=== PATIENT | male | born 1955 | race Two or more races ===

== ENCOUNTER 2024-05-03 01:59 | Inpatient (IN) | payer MEDICARE, BC ==
[~2024-05-03] VITALS: Ht 193 cm; Wt 109.8 kg
--- NOTE | 2024-05-03 02:18 | ED.PDOC ---
History of Present Illness HPI Comments 68-year-old male the EMS for generalized weakness. Per EMS, patient was picked up at [facility], with a complaint of generalized weakness for 3 days. Diagnostics were done and it showed elevated troponin levels and altered kidney function tests. Diagnosed with acute renal failure. Patient does have history of prostate cancer(?), with possibility of metastases to kidneys. Patient being transferred here for renal consult and oncology consult. Chief Complaint: General Weakness Time Seen by MD: 02:17 Reviewed Notes: Nurses Notes Information Source: Patient, Emergency Med Personnel Mode of Arrival: EMS Severity: Moderate Timing: Days Duration: Since onset Prehospital treatment: None Medication Refill: For: Other Past Medical History PAST MEDICAL HISTORY: AFIB, Cancer Surgical History: Denies all surgeries Family History Family History: Reviewed,noncontributory to illness Social History Smoker: Non-Smoker Alcohol: Denies ETOH Use Drugs: Denies Drug Use Lives In: Home Constitutional: reports: weakness; denies: chills, diaphoresis, fatigue, fever, malaise, sweats, others EENTM: denies: blurred vision, double vision, ear bleeding, ear discharge, ear drainage, ear pain, ear ringing, eye pain, eye redness, hearing loss, mouth pain, mouth swelling, nasal discharge, nose bleeding, nose congestion, nose pain, photophobia, tearing, throat pain, throat swelling, voice changes, others Respiratory: denies: cough, hemoptysis, orthopnea, SOB at rest, shortness of breath, SOB with excertion, stridor, wheezing, others Cardiovascular: reports: chest pain (Right ribcage); denies: dizzy spells, diaphoresis, Dyspnea on exertion, edema, irregular heart beat, left arm pain, lightheadedness, palpitations, PND, syncope, others Gastrointestinal: denies: abdomen distended, abdominal pain, blood streaked bowels, constipated, diarrhea, dysphagia, difficulty swallowing, hematemesis, melena, nausea, poor appetite, poor fluid intake, rectal bleeding, rectal pain, vomiting, others Genitourinary: denies: burning, dysuria, flank pain, frequency, hematuria, incontinence, penile discharge, penile sore, pain, testicle pain, testicle swelling, urgency, others Neurological: denies: dizziness, fainting, headache, left sided numbness, left sided weakness, numbness, paresthesia, pre-existing deficit, right sided numbness, right sided weakness, seizure, speech problems, tingling, tremors, weakness, others Musculoskeletal: denies: back pain, gout, joint pain, joint swelling, muscle pain, muscle stiffness, neck pain, others Integumetry: denies: bruises, change in color, change in hair/nails, dryness, laceration, lesions, lumps, rash, wounds, others Allergic/Immunocompromised: denies: Difficulty Healing, Frequent Infections, Hives, Itching, others Hematologic/Lymphatic: denies: anemia, blood clots, easy bleeding, easy bruising, swollen glands, others Endocrine: denies: excessive hunger, excessive sweating, excessive thirst, excessive urination, flushing, intolerance to cold, intolerance to heat, unexplained weight gain, unexplained weight loss, others Psychiatric: denies: anxiety, bipolar disorder, depression, hopeless, panic disorder, schizophrenia, sleepless, suicidal, others Physical Exam General Appearance: No Apparent Distress, Normal HEENT: Normal ENT Inspection, Pharynx Normal, TMs Normal Neck: Full Range of Motion, Non-Tender, Normal, Normal Inspection Respiratory: Chest Non-Tender, Lungs Clear, No Accessory Muscle Use, No Respiratory Distress, Normal Breath Sounds Cardiovascular: No Edema, No JVD, No Murmur, No Gallop, Normal Peripheral Pulses, Regular Rate/Rhythm Breast Exam: Deferred Gastrointestinal: No Organomegaly, Non Tender, No Pulsatile Mass, Normal Bowel Sounds, Soft Genitalia: Deferred Pelvic: Deferred Rectal: Deferred Extremities: No calf tenderness, Normal capillary refill, Normal inspection, Normal range of motion, Non-tender, No pedal edema Musculoskeletal : Apperance: Normal Neurologic: Alert, 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 Was a procedure done?: No Differential Dx Considerations may include: , electrolyte imbalance, anemia, prostate cancer with Mets X-Ray, Labs, Meds, VS Vital Signs Date Time Temp Pulse Resp B/P (MAP) Pulse Ox O2 Delivery O2 Flow Rate FiO2 05/03/24 05:12 82 16 109/60 (76) 98 05/03/24 04:42 109/72 05/03/24 02:55 92 Nasal Cannula* 6 44 05/03/24 02:40 99.1 90 14 98/55 (69) 98 99.1 05/03/24 01:59 99.2 84 18 94/55 (68) 98 05/03/24 01:59 86 Lab Test 05/03/24 02:27 Range/Units White Blood Count 9.7 4.4-10.8 10^3/uL Red Blood Count 3.80 L 4.5-5.90 10^6/uL Hemoglobin 12.5 L 13.5-17.5 g/dL Hematocrit 37.0 L 41.0-53.0 % Mean Corpuscular Volume 97.4 80.0-100.0 fL Mean Corpuscular Hemoglobin 32.8 H 28.0-32.0 pg Mean Corpuscular Hemoglobin Concent 33.7 32.0-36.0 g/dL Red Cell Distribution Width 16.2 H 11.8-14.3 % Platelet Count 169 140-450 10^3/uL Mean Platelet Volume 7.3 6.9-10.8 fL Neutrophils (%) (Auto) 85.9 H 37.0-80.0 % Lymphocytes (%) (Auto) 3.5 L 10.0-50.0 % Monocytes (%) (Auto) 10.1 0.0-12.0 % Eosinophils (%) (Auto) 0.3 0.0-7.0 % Basophils (%) (Auto) 0.2 0.0-2.0 % Neutrophils # (Auto) 8.3 1.6-8.6 10 ^3/uL Lymphocytes # (Auto) 0.3 L 0.4-5.4 10 ^3/uL Monocytes # (Auto) 1.0 0-1.3 10 ^3/uL Eosinophils # (Auto) 0 0-0.8 10 ^3/uL Basophils # (Auto) 0 0-0.2 10 ^3/uL Nucleated Red Blood Cells 0.0 % Prothrombin Time 15.1 H 9.3-11.8 sec Prothrombin Time INR 1.47 H 0.9-1.15 Activated Partial Thromboplast Time 29.4 24.5-34.5 SEC Sodium Level 140 136-145 mmol/L Potassium Level 2.9 L 3.5-5.1 mmol/L Chloride Level 105 98-107 mmol/L Carbon Dioxide Level 25 20-31 mmol/L Anion Gap 10 5-15 Blood Urea Nitrogen 44 H 9-23 mg/dL Creatinine 2.08 H 0.700-1.30 mg/dL Glomerular Filtration Rate Calc 34 >90 mL/min BUN/Creatinine Ratio 21.2 H 10.0-20.0 Serum Glucose 98 74-106 mg/dL Calcium Level 9.3 8.7-10.4 mg/dL Total Bilirubin 1.4 H 0.2-1.0 mg/dL Aspartate Amino Transferase (AST) 22 13-40 U/L Alanine Aminotransferase (ALT) < 9 7-40 U/L Alkaline Phosphatase 83 46-116 U/L Total Protein 5.9 5.7-8.2 g/dL Albumin 3.4 3.2-4.8 g/dL Current Medications Medications (Trade) Dose Ordered Sig/Goyo Route Start Time Stop Time Status Last Admin Furosemide (Lasix Injection) 40 mg ONCE ONCE IV 05/03/24 04:15 05/03/24 04:16 DC 05/03/24 04:42 Potassium Chloride (Klor-Con Tablet) 40 meq ONCE ONCE PO 05/03/24 04:15 05/03/24 04:16 DC 05/03/24 04:43 Time of 1ST Reevaluation: 02:14 Reevaluation 1ST: Unchanged Time of 2ND Reevaluation: 03:42 Reevaluation 2ND: Unchanged Patient Education/Counseling: Diagnosis, Treatment Family Education/Counseling: No Family Present Departure 1 Departure Time of Disposition: 03:42 Impression: Primary Impression: Acute renal injury Additional Impression: Lung cancer Disposition: 09 ADMITTED INPATIENT Condition: Guarded Critical Care Note Critical Care Time?: No Stability Stability form required: No Heart Score Heart Score: Heart Score Response (Comments) Value History N/A 0 EKG N/A 0 Age N/A 0 Risk Factors N/A 0 Troponin N/A 0 Total 0 I personally scribed for CHINA FUENTES MD ([email or web address]) on 05/03/24 at 02:18. Electronically submitted by Kyle Lunsford ([email or web address]). I personally scribed for CHINA FUENTES MD ([email or web address]) on 05/03/24 at 02:22. Electronically submitted by Kyle Lunsford ([email or web address]). HCINA FUENTES MD May 03, 2024 02:18
[2024-05-03 02:36] LABS: Basophils # (auto) 0 10 ^3/uL (0-0.2); Basophils % (auto) 0.2 % (0.0-2.0); Eosinophils # (auto) 0 10 ^3/uL (0-0.8); Eosinophils % (auto) 0.3 % (0.0-7.0); Hemoglobin 12.5 g/dL (13.5-17.5); Lymphocytes # (auto) 0.3 10 ^3/uL (0.4-5.4); Lymphocytes % (auto) 3.5 % (10.0-50.0); Mean Corpuscular Hemoglobin 32.8 pg (28.0-32.0); Mean Corpuscular Hgb Conc. 33.7 g/dL (32.0-36.0); Mean Corpuscular Volume 97.4 fL (80.0-100.0); Monocytes % (auto) 10.1 % (0.0-12.0); Neutrophils # (auto) 8.3 10 ^3/uL (1.6-8.6); Neutrophils % (auto) 85.9 % (37.0-80.0); Platelet Count (auto) 169 10^3/uL (140-450); Red Cell Distribution Width 16.2 % (11.8-14.3); White Blood Cell 9.7 10^3/uL (4.4-10.8)
[2024-05-03 02:51] LABS: INR 1.47 (0.9-1.15); Partial Thromboplastin Time 29.4 SEC (24.5-34.5); Prothrombin Time 15.1 sec (9.3-11.8)
[2024-05-03 02:53] LABS: Alanine Aminotransferase < 9 U/L (7-40); Albumin 3.4 g/dL (3.2-4.8); Alkaline Phosphatase 83 U/L (46-116); Anion Gap 10 (5-15); Aspartate Aminotransferase 22 U/L (13-40); BUN/Creatinine Ratio 21.2 (10.0-20.0); Bilirubin, Total 1.4 mg/dL (0.2-1.0); Blood Urea Nitrogen 44 mg/dL (9-23); Calcium 9.3 mg/dL (8.7-10.4); Carbon Dioxide 25 mmol/L (20-31); Chloride 105 mmol/L (98-107); Glucose 98 mg/dL (74-106); Potassium 2.9 mmol/L (3.5-5.1); Sodium 140 mmol/L (136-145); Total Protein 5.9 g/dL (5.7-8.2)
[2024-05-03 02:55] VITALS: O2SAT 92
[2024-05-03] MEDS: FUROSEMIDE 40 MG/4 ML VIAL IV ONE (04:42)
[2024-05-03] MEDS: POTASSIUM CHL 20 Meq TABLET PO ONE ×2 (04:43→17:20)
[2024-05-03] MEDS ORDERED: DOCUSATE SOD 100 MG CAP PO PRN (06:30)
[2024-05-03] MEDS ORDERED: ACETAMINOPHEN 325 MG TAB PO PRN (06:30)
[2024-05-03] MEDS ORDERED: ONDANSETRON HCL 4 MG/2 ML VIAL IV PRN (06:30)
--- NOTE | 2024-05-03 06:32 | ECG ---
[facility] Test Date: 2024-05-03 Test Time: 01:52:42 Pat Name: KELSEY MCKEON Department: ED Room: 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
[2024-05-03 06:55] LABS: Basophils # (auto) 0.1 10 ^3/uL (0-0.2); Basophils % (auto) 0.7 % (0.0-2.0); Eosinophils # (auto) 0 10 ^3/uL (0-0.8); Eosinophils % (auto) 0.4 % (0.0-7.0); Hematocrit 36.9 % (41.0-53.0); Hemoglobin 12.7 g/dL (13.5-17.5); Lymphocytes # (auto) 0.3 10 ^3/uL (0.4-5.4); Lymphocytes % (auto) 2.8 % (10.0-50.0); Mean Corpuscular Hemoglobin 33.4 pg (28.0-32.0); Mean Corpuscular Hgb Conc. 34.5 g/dL (32.0-36.0); Mean Corpuscular Volume 96.8 fL (80.0-100.0); Monocytes # (auto) 0.9 10 ^3/uL (0-1.3); Monocytes % (auto) 9.6 % (0.0-12.0); Neutrophils # (auto) 7.9 10 ^3/uL (1.6-8.6); Neutrophils % (auto) 86.5 % (37.0-80.0); Platelet Count (auto) 175 10^3/uL (140-450); Red Blood Cells 3.81 10^6/uL (4.5-5.90); Red Cell Distribution Width 16.1 % (11.8-14.3); White Blood Cell 9.1 10^3/uL (4.4-10.8)
[2024-05-03 07:13] LABS: Albumin 3.3 g/dL (3.2-4.8); Alkaline Phosphatase 89 U/L (46-116); Anion Gap 9 (5-15); Aspartate Aminotransferase 23 U/L (13-40); BUN/Creatinine Ratio 22.2 (10.0-20.0); Calcium 9.4 mg/dL (8.7-10.4); Carbon Dioxide 27 mmol/L (20-31); Chloride 105 mmol/L (98-107); Glucose 89 mg/dL (74-106); Sodium 141 mmol/L (136-145)
[2024-05-03 07:14] LABS: Alanine Aminotransferase < 9 U/L (7-40); Bilirubin, Total 1.3 mg/dL (0.2-1.0); Blood Urea Nitrogen 46 mg/dL (9-23); Potassium 2.9 mmol/L (3.5-5.1); Total Protein 5.9 g/dL (5.7-8.2)
[2024-05-03] MEDS ORDERED: MORPHINE SULFATE INJ 2 MG/ml SYRG IV PRN (07:30)
[2024-05-03] MEDS ORDERED: NITROGLYCERIN 0.4 MG SL TAB SL PRN (07:30)
--- NOTE | 2024-05-03 07:40 | DVHHP2 ---
History of Present Illness Reason for Visit: Generalized weakness History of Present Illness The patient is a 68-year-old male with past medical history of AFib currently on Coumadin and lung cancer with possible metastasis to the kidney, presented to [facility] ED for evaluation of generalized weakness. Patient rep orts having generalized weakness for the past three days, associated chest pain, currently on radiation therapy, last treatment 2 weeks ago. Patient was seen and evaluated in the ED, laboratory data shows WBC 9.7, platelets 169, sodium 140, potassium 2.9, BUN 44, creatinine 2.08, GFR 34, glucose 98, total bilirubin 1.4, PT 15.1, INR 1.47, blood pressure 109/60, heart rate 82, temperature 99.1 F, O2 saturation 98% on oxygen. Patient was given IV piggyback potassium 40 mEq, please see medication orders section in the computer. On my assessment, patient denied chest pain, no headache, no dizziness, no diaphoresis, currently on oxygen, no abdominal pain, no diarrhea, no nausea, no vomiting, no fever, no chills. Patient was admitted for further oncology evaluation and medical management. Past Medical History AFIB, lung cancer Past Surgical History Denies all surgeries Family History Reviewed, noncontributory to the management of this case. Past Social History The patient lives at home, denies smoking, alcohol or illicit drugs abuse. Review of Systems Constitutional: Yes: Weakness, Other (Fatigue); No: Fever, Chills, Sweats, Malaise Eyes: No: Pain, Vision change, Conjunctivae inflammation, Eyelid inflammation, Other, Redness ENT: No: Ear pain, Ear discharge, Nose pain, Nose discharge, Nose congestion, Mouth pain, Mouth swelling, Throat pain, Throat swelling, Other Respiratory: Shortness of breath, Other (SOB at rest); No: Cough, Dry, SOB with excertion, Wheezing, Hemoptysis, Pleuritic Pain, Sputum, Wheezing Cardiovascular: Chest Pain; No: Palpitations, Orthopnea, Paroxysmal Noc. Dyspnea, Edema, Lt Headedness, Other Gastrointestinal: No: Nausea, Vomiting, Abdominal Pain, Diarrhea, Constipation, Melena, Hematochezia, Other Genitourinary: No Dysuria, No Frequency, No Incontinence, No Hematuria, No Retention, No Other Musculoskeletal: No: other, neck pain, shoulder pain, arm pain, back pain, hand pain, leg pain, foot pain Skin: No: Rash, Lesions, Jaundice, Bruising, Other Neurological: No: Weakness, Numbness, Incoordination, Change in speech, Confusion, Seizures, Other Medications Current Medications Medications Dose Ordered Sig/Goyo Route Start Time Stop Time Status Last Admin Dose Admin Carvedilol 3.125 mg Q12HR PO 05/03/24 10:00 UNV Warfarin Sodium RX PROTOCOL PER PHARMACY PO 05/03/24 06:30 UNV Sodium Chloride 10 ml Q8HR IV 05/03/24 14:00 UNV Acetaminophen/ Hydrocodone Bitart 1 tab Q4HP PRN PO 05/03/24 06:30 UNV Ondansetron HCl 4 mg Q4HP PRN IV 05/03/24 06:30 UNV Docusate Sodium 100 mg BIDPRN PRN PO 05/03/24 06:30 UNV Acetaminophen 650 mg Q6HP PRN PO 05/03/24 06:30 UNV Exam Vital Signs Vital Signs Date Time Temp Pulse Resp B/P (MAP) Pulse Ox O2 Delivery O2 Flow Rate FiO2 05/03/24 05:12 82 16 109/60 (76) 98 05/03/24 02:55 Nasal Cannula* 6 44 05/03/24 02:40 99.1 99.1 General Appearance: Alert, Oriented X3, Cooperative, No acute distress HEENT: Atraumatic, PERRLA, EOMI, Mucous membr. moist/pink Respiratory: Normal air movement, Other (Diminished breath sounds) Cardiovascular: Regular rate, Normal S1, Normal S2, No murmurs Abdominal: Normal bowel sounds, Soft, No tenderness, No hepatospenomegaly, No masses Extremities: No clubbing, No cyanosis, No edema, Normal pulses, No tenderness/swelling Skin: No rashes, No breakdown, No significant lesion Neuro: Normal speech, Normal tone, Sensation intact, Cranial nerves 3-12 NL, Reflexes 2+, Other (Generalized weakness) Psych/Mental Status: Mental status NL, Mood NL Labs/Xrays Labs Test 05/03/24 06:41 05/03/24 02:27 Range/Units White Blood Count 9.1 4.4-10.8 10^3/uL Red Blood Count 3.81 L 4.5-5.90 10^6/uL Hemoglobin 12.7 L 13.5-17.5 g/dL Hematocrit 36.9 L 41.0-53.0 % Mean Corpuscular Volume 96.8 80.0-100.0 fL Mean Corpuscular Hemoglobin 33.4 H 28.0-32.0 pg Mean Corpuscular Hemoglobin Concent 34.5 32.0-36.0 g/dL Red Cell Distribution Width 16.1 H 11.8-14.3 % Platelet Count 175 140-450 10^3/uL Mean Platelet Volume 7.5 6.9-10.8 fL Neutrophils (%) (Auto) 86.5 H 37.0-80.0 % Lymphocytes (%) (Auto) 2.8 L 10.0-50.0 % Monocytes (%) (Auto) 9.6 0.0-12.0 % Eosinophils (%) (Auto) 0.4 0.0-7.0 % Basophils (%) (Auto) 0.7 0.0-2.0 % Neutrophils # (Auto) 7.9 1.6-8.6 10 ^3/uL Lymphocytes # (Auto) 0.3 L 0.4-5.4 10 ^3/uL Monocytes # (Auto) 0.9 0-1.3 10 ^3/uL Eosinophils # (Auto) 0 0-0.8 10 ^3/uL Basophils # (Auto) 0.1 0-0.2 10 ^3/uL Nucleated Red Blood Cells 0.0 % Sodium Level 141 136-145 mmol/L Potassium Level 2.9 L 3.5-5.1 mmol/L Chloride Level 105 98-107 mmol/L Carbon Dioxide Level 27 20-31 mmol/L Anion Gap 9 5-15 Blood Urea Nitrogen 46 H 9-23 mg/dL Creatinine 2.07 H 0.700-1.30 mg/dL Glomerular Filtration Rate Calc 34 >90 mL/min BUN/Creatinine Ratio 22.2 H 10.0-20.0 Serum Glucose 89 74-106 mg/dL Calcium Level 9.4 8.7-10.4 mg/dL Total Bilirubin 1.3 H 0.2-1.0 mg/dL Aspartate Amino Transferase (AST) 23 13-40 U/L Alanine Aminotransferase (ALT) < 9 7-40 U/L Alkaline Phosphatase 89 46-116 U/L Total Protein 5.9 5.7-8.2 g/dL Albumin 3.3 3.2-4.8 g/dL Prothrombin Time 15.1 H 9.3-11.8 sec Prothrombin Time INR 1.47 H 0.9-1.15 Activated Partial Thromboplast Time 29.4 24.5-34.5 SEC Assessment/Plan Assessment/Plan Acute renal injury Lung cancer Hypokalemia Generalized weakness Acute respiratory failure with hypoxia Plan 1. Admit to telemetry unit 2. Breathing treatment 3. Pain control management 4. Management of fluids and electrolytes 5. Consultation for Hematology/Oncology, Nephrology/pulmonology 6. Diagnostic tests chest x-ray 7. DVT prophylaxis-on Coumadin 8. Repeat labs CBC, CMP in a.m. 9. Continue with current medical management 10. Treatment plan discussed with patient and RN. Patient verbalized understanding. Plan discussed with: Patient, Other (RN) My Orders Orders - JEANETTE HERR DNP Procedure Category Date Status Time *Dr. Dangelo Group CONS 05/03/24 Transmitted -[place] 06:23 Carvedilol Tablet PHA 05/03/24 Logged (Coreg Tablet) 10:00 Warfarin Per Rx PHA 05/03/24 Logged Protocol (Coumadin 06:30 Allergies JIMI 05/03/24 In Process 06:23 Code Status CODE 05/03/24 Transmitted 06:23 Sodium Chloride Lock PHA 05/03/24 Logged (Saline Lock Ns) 14:00 Oxygen Per Hour RT 05/03/24 Transmitted 06:23 Hydrocodone-Acet PHA 05/03/24 Logged 5/325mg Tab ([place] 06:30 Ondansetron Hcl PHA 05/03/24 Logged (Zofran) 06:30 Docusate Sodium PHA 05/03/24 Logged Capsule (Colace 06:30 Fall Risk Precautions JIMI 05/03/[address] 06:23 Complete Blood Count LAB 05/04/24 Verified 04:00 Comprehensive LAB 05/04/24 Verified Metabolic Panel 04:00 Cardiac DIET 05/03/24 Transmitted Diet-2gna,Lofat,Lochol Breakfast Condition: Serious JIMI 05/03/24 In Process 06:23 Acetaminophen Tablet PHA 05/03/24 Logged (Tylenol Tablet) 06:30 Sequential JIMI 05/03/24 In Process Compression Device Problem List: (1) Acute renal injury (2) Lung cancer (3) Hypokalemia (4) Generalized weakness (5) Acute respiratory failure with hypoxia Date of Service: May 03, 2024 Billing Provider: JEANETTE HERR DNP Common Visit Codes: [id number] INP/OBS CARE (HIGH) JEANETTE HERR DNP May 03, 2024 07:40
[2024-05-03] MEDS ORDERED: IPRATROPIUM BROM 0.5 MG/2.5ML INH SOL NEB PRN (08:30)
[2024-05-03] MEDS ORDERED: ALBUTEROL SULF 2.5 MG/0.5ML(0.5%) NEB SOLN NEB PRN (08:30)
[2024-05-03] MEDS: CARVEDILOL 3.125 MG TAB PO SCH (10:00)
[2024-05-03 11:01] VITALS: PULSE 95; RESP 16; O2SAT 96
[2024-05-03] MEDS ORDERED: PRE5T PO (11:17)
[2024-05-03] MEDS ORDERED: LOSA-533 PO (11:17)
[2024-05-03] MEDS ORDERED: DOCU-265 PO (11:17)
[2024-05-03] MEDS ORDERED: CARV3.1240 PO (11:17)
[2024-05-03] MEDS ORDERED: WARF-66 PO (11:17)
[2024-05-03] MEDS ORDERED: GABA-339 PO (11:17)
[2024-05-03 13:01] VITALS: BP 121/79; PULSE 95; RESP 16; TEMP 98.7; O2SAT 96
--- NOTE | 2024-05-03 15:29 | DVHINCON2 ---
Date Seen: May 03, 2024 Referring Physician MD Rommel Reason for Consultation Hx of Afib History of Present Illness This is a 68-year-old male patient who presents from [facility] for generalized weakness for three days. Patient reports he has been feeling fatigued and generally weak prior to coming to the emergency room. He reports being unable to walk or complete any activities of daily living. EMS was called and the patient was taken to [facility] in [facility]. He was then transferred to this facility for further evaluation. Initial twelve lead electrocardiogram reveals atrial fibrillation with controlled rate. The patient denies any cardiac symptoms at time of assessment. Significant past medical history includes atrial fibrillation (on Warfarin), hypertension, bilateral lower extremity DVTs, prostate cancer with metastasis, peripheral neuropathy and obesity. 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 Past Medical History Past medical history reviewed. No other significant than mentioned above. Past Surgical History Cholecystectomy Right shoulder repair Family History: Patient reports no known family medical history. Family History Family history reviewed. Social History Denies the use of tobacco, alcohol or illicit drugs. Allergies: Coded Allergies: Morphine (Verified Allergy, Severe, 05/03/24) Home Meds Reported Medications Losartan Potassium (Losartan Potassium) 25 Mg Tab, 1 TAB PO DAILY, #90 TAB 1 Refill 05/03/24 Warfarin Sodium (Warfarin Sodium) 5 Mg Tab, TAB PO 05/03/24 Gabapentin (Gabapentin) 600 Mg Tab, 1 TAB PO TID 05/03/24 Carvedilol (Carvedilol) 3.125 Mg Tab, 1 TAB PO BID 05/03/24 Prednisone (Prednisone) 5 Mg Tab, 1 TAB PO DAILY 05/03/24 Docusate Sodium (Docusate Sodium) 100 Mg Cap, 1 CAP PO BID 05/03/24 Current Medications Current Medications Medications (Trade) Dose Ordered Sig/Goyo Route PRN Reason Start Time Stop Time Status Last Admin Carvedilol (Coreg Tablet) 3.125 mg Q12HR PO 05/03/24 10:00 Warfarin Sodium (Coumadin Per Rx Protocol) RX PROTOCOL PER PHARMACY PO 05/03/24 06:30 Sodium Chloride (Saline Lock Ns) 10 ml Q8HR IV 05/03/24 14:00 Acetaminophen/ Hydrocodone Bitart ([place] 5/325MG Tab) 1 tab Q4HP PRN PO MODERATE PAIN (4-6 PAIN SCALE) 05/03/24 06:30 Ondansetron HCl (Zofran) 4 mg Q4HP PRN IV NAUSEA / VOMITING 05/03/24 06:30 Docusate Sodium (Colace Capsule) 100 mg BIDPRN PRN PO FOR CONSTIPATION 05/03/24 06:30 Acetaminophen (Tylenol Tablet) 650 mg Q6HP PRN PO PAIN SCALE 1-3 OR TEMP>100.4 05/03/24 06:30 Nitroglycerin (Ntrostat Sublingual) 0.4 mg Q5MINP PRN SL FOR CHEST PAIN 05/03/24 07:30 Morphine Sulfate 2 mg Q30M PRN IV FOR CHEST PAIN 05/03/24 07:30 Hold Albuterol (Ventolin Medneb) 2.5 mg Q4HPRN PRN NEB SHORTNESS OF BREATH 05/03/24 08:30 05/03/24 08:53 DC Ipratropium [place] (Atrovent Medneb) 0.5 mg Q4HPRN PRN NEB SHORTNESS OF BREATH 05/03/24 08:30 05/03/24 08:53 DC Review of Systems Constitutional: Generalized weakness Ears, Nose, & Throat: No symptom reported Eyes: No symptom reported Neurological: No symptoms reported Pulmonary/Respiratory: No symptoms reported Cardiovascular: No symptom reported Gastrointestinal: No symptom reported Genitourinary: No symptom reported Musculoskeletal: No symptom reported Skin: No symptom reported Psychiatric: No symptom reported Endocrine: No symptom reported Hematologic/Lymphatic: No symptom reported Vital Signs Vital Signs Date Time Temp Pulse Resp B/P (MAP) Pulse Ox O2 Delivery O2 Flow Rate FiO2 05/03/24 13:01 98.7 95 16 121/79 (93) 96 98.7 05/03/24 11:01 Room Air* 0 21 Physical Exam General Appearance: Cooperative. Morbidly obese Pulmonary/Respiratory: Clear, bilateral breaths sounds. Cardiovascular/Chest: Irregular rate and rhythm. Peripheral Pulses: 2+ Radial (R). 2+ Radial (L). 1+ Pedal (R). 1+ Pedal (L) Abdominal Exam: Normal bowel sounds. Ankle Exam: 4+ pitting edema Lower extremities: 4+ pitting edema Neuro/Mental Status: A/OX4, coherent. Thoughts/Psych: Normal thought pattern. Appropriate mood and affect. Good judgment and insight. Appearance: No acute distress. Skin Exam: Hyperpigmentation to bilateral lower extremities. Warm and dry Labs/Diagnostic Data Labs Test 05/03/24 06:41 05/03/24 02:27 Range/Units White Blood Count 9.1 4.4-10.8 10^3/uL Red Blood Count 3.81 L 4.5-5.90 10^6/uL Hemoglobin 12.7 L 13.5-17.5 g/dL Hematocrit 36.9 L 41.0-53.0 % Mean Corpuscular Volume 96.8 80.0-100.0 fL Mean Corpuscular Hemoglobin 33.4 H 28.0-32.0 pg Mean Corpuscular Hemoglobin Concent 34.5 32.0-36.0 g/dL Red Cell Distribution Width 16.1 H 11.8-14.3 % Platelet Count 175 140-450 10^3/uL Mean Platelet Volume 7.5 6.9-10.8 fL Neutrophils (%) (Auto) 86.5 H 37.0-80.0 % Lymphocytes (%) (Auto) 2.8 L 10.0-50.0 % Monocytes (%) (Auto) 9.6 0.0-12.0 % Eosinophils (%) (Auto) 0.4 0.0-7.0 % Basophils (%) (Auto) 0.7 0.0-2.0 % Neutrophils # (Auto) 7.9 1.6-8.6 10 ^3/uL Lymphocytes # (Auto) 0.3 L 0.4-5.4 10 ^3/uL Monocytes # (Auto) 0.9 0-1.3 10 ^3/uL Eosinophils # (Auto) 0 0-0.8 10 ^3/uL Basophils # (Auto) 0.1 0-0.2 10 ^3/uL Nucleated Red Blood Cells 0.0 % Sodium Level 141 136-145 mmol/L Potassium Level 2.9 L 3.5-5.1 mmol/L Chloride Level 105 98-107 mmol/L Carbon Dioxide Level 27 20-31 mmol/L Anion Gap 9 5-15 Blood Urea Nitrogen 46 H 9-23 mg/dL Creatinine 2.07 H 0.700-1.30 mg/dL Glomerular Filtration Rate Calc 34 >90 mL/min BUN/Creatinine Ratio 22.2 H 10.0-20.0 Serum Glucose 89 74-106 mg/dL Calcium Level 9.4 8.7-10.4 mg/dL Magnesium Level 1.6 1.6-2.6 mg/dL Total Bilirubin 1.3 H 0.2-1.0 mg/dL Aspartate Amino Transferase (AST) 23 13-40 U/L Alanine Aminotransferase (ALT) < 9 7-40 U/L Alkaline Phosphatase 89 46-116 U/L Total Protein 5.9 5.7-8.2 g/dL Albumin 3.3 3.2-4.8 g/dL Prothrombin Time 15.1 H 9.3-11.8 sec Prothrombin Time INR 1.47 H 0.9-1.15 Activated Partial Thromboplast Time 29.4 24.5-34.5 SEC Assessment Atrial fibrillation, likely persistent (on Warfarin) Rule out structural heart disease History of bilateral lower extremity DVTs Hypertension MARIA EUGENIA vs CKD Hypokalemia Peripheral neuropathy Prostate cancer with metastasis Obesity Plan/Recommendation We will continue with the following plan/recommendations (Dr. Gallagher): * Echocardiogram to evaluate cardiac function * ?[id number] VASc score: 3 points HAS-BLED: 1 point * Continue Beta-kevyn for rate control * Continue Warfarin per pharmacy protocol * Monitor and replete electrolytes as needed, keep K>4 and Mag>2 * Cardiac surveillance: Notify of any ECG changes Case discussed with Dr. Gallagher. Thank you for allowing us to care for this patient. Please call with any questions or concerns. Critical care time spent: 40 minutes This medical document was created using an electronic medical record system with voice recognition software and computerized dictation system. Although this document has been carefully reviewed, there might still be some phonetic and typographical errors. Occasional wrong-word or ``sound-alike substitutions may have occurred due to the inherent limitations of voice recognition software. These areas are purely typographical due to imperfections of the software programs and do not reflect any compromise in the patient's medical care. Please read the chart carefully and recognize, using context, where these substitutions have occurred. Plan discussed with: Patient Date of Service: May 03, 2024 Billing Provider: MABEL MEEK Cardiology Common Codes: [id number] INP/OBS CARE (High) Cardiology Consultation Codes: [id number] CONSULT <45MIN MABEL MEEK May 03, 2024 15:29
[2024-05-03 16:14] LABS: LDL Cholesterol 41 mg/dL (< 100); Triglycerides 110 mg/dL (< 150)
[2024-05-03 16:16] LABS: Cholesterol 93 mg/dL (< 200)
[2024-05-03 16:28] LABS: HDL Cholesterol 24 mg/dL (40-59)
[2024-05-03 17:00] VITALS: BP 132/81; PULSE 60; RESP 16; TEMP 98.2; O2SAT 90
[2024-05-03] MEDS: MAGNESIUM SULFATE 1GM/100ML 100 ML IV SCH (17:00)
[2024-05-03] MEDS: SODIUM CHLOR 0.9% PF (SALINE LOCK) 10ML VIAL/SYR IV SCH (17:01)
[2024-05-03] MEDS: WARFARIN SODIUM 5 MG TAB PO ONE (17:09)
--- NOTE | 2024-05-03 19:12 | DVHINCON2 ---
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 on chemotherapy follows , peripheral neuropathy, presented with chief complaints of generalized weakness for the past 3 to 4 days,, he also complains of urinary frequency,, denies shortness of breath denies any chest pain he is found to have hypokalemia, hypotension on admission and also atrial fibrillation with rate controlled his son is bedside, patient denies taking supplements or NSAIDs,, patient tells me his urinary complaints gotten worse ever since he was diagnosed with prostate cancer Past Medical History As per HPI Past Surgical History He reports several surgeries including hip replacement, knee replacement, gallbladder removal, radiation therapy for prostate cancer, neck surgery Allergies: Coded Allergies: Morphine (Verified Allergy, Severe, 05/03/24) Home Meds Reported Medications Losartan Potassium (Losartan Potassium) 25 Mg Tab, 1 TAB PO DAILY, #90 TAB 1 Refill 05/03/24 Warfarin Sodium (Warfarin Sodium) 5 Mg Tab, TAB PO 05/03/24 Gabapentin (Gabapentin) 600 Mg Tab, 1 TAB PO TID 05/03/24 Carvedilol (Carvedilol) 3.125 Mg Tab, 1 TAB PO BID 05/03/24 Prednisone (Prednisone) 5 Mg Tab, 1 TAB PO DAILY 05/03/24 Docusate Sodium (Docusate Sodium) 100 Mg Cap, 1 CAP PO BID 05/03/24 Current Medications Current Medications Medications (Trade) Dose Ordered Sig/Goyo Route PRN Reason Start Time Stop Time Status Last Admin Carvedilol (Coreg Tablet) 3.125 mg Q12HR PO 05/03/24 10:00 05/03/24 21:56 Warfarin Sodium (Coumadin Per Rx Protocol) RX PROTOCOL PER PHARMACY PO 05/03/24 06:30 Sodium Chloride (Saline Lock Ns) 10 ml Q8HR IV 05/03/24 14:00 05/03/24 21:56 Acetaminophen/ Hydrocodone Bitart (Coram 5/325MG Tab) 1 tab Q4HP PRN PO MODERATE PAIN (4-6 PAIN SCALE) 05/03/24 06:30 Ondansetron HCl (Zofran) 4 mg Q4HP PRN IV NAUSEA / VOMITING 05/03/24 06:30 Docusate Sodium (Colace Capsule) 100 mg BIDPRN PRN PO FOR CONSTIPATION 05/03/24 06:30 Acetaminophen (Tylenol Tablet) 650 mg Q6HP PRN PO PAIN SCALE 1-3 OR TEMP>100.4 05/03/24 06:30 Nitroglycerin (Ntrostat Sublingual) 0.4 mg Q5MINP PRN SL FOR CHEST PAIN 05/03/24 07:30 Morphine Sulfate 2 mg Q30M PRN IV FOR CHEST PAIN 05/03/24 07:30 Hold Albuterol (Ventolin Medneb) 2.5 mg Q4HPRN PRN NEB SHORTNESS OF BREATH 05/03/24 08:30 05/03/24 08:53 DC Ipratropium [place] (Atrovent Medneb) 0.5 mg Q4HPRN PRN NEB SHORTNESS OF BREATH 05/03/24 08:30 05/03/24 08:53 DC Magnesium Sulfate/ Dextrose 100 ml @ 100 mls/hr Q1HR IV 05/03/24 16:00 05/03/24 17:59 DC 05/03/24 18:48 Sodium Chloride 1,000 ml @ 75 mls/hr [id number] IV 05/03/24 22:45 UNV Family History: Patient reports no known family medical history. Social History Denies smoking drinking drugs Review of Systems HEENT-denies headache, denies vision changes, no hearing issue, denies neck complaints, denies throat issues Respiratory system-denies cough, denies shortness of breath Cardiovascular system-denies chest pain, denies palpitations Abdomen-denies abdominal pain, denies nausea, denies vomiting, denies constipation or diarrhea Musculoskeletal-denies swelling in the legs, denies pain in the extremities Genitourinary-denies urinary symptoms like dysuria, positive urinary frequency Neuro-denies dizziness, denies seizures Psychiatric-denies psychiatric history H&P Exam Vital Signs/I&O Vital Sign Date Time Temp Pulse Resp B/P (MAP) Pulse Ox O2 Delivery O2 Flow Rate FiO2 05/03/24 21:56 60 105/66 05/03/24 21:00 98.5 17 93 98.5 05/03/24 11:01 Room Air* 0 21 Physical Exam General-not in any distress HEENT-normocephalic, no icterus, no pallor, neck supple Respiratory-fair air entry bilateral, no rhonchi, no wheeze [id number] heard, irregular Abdominal-soft, nontender, nondistended Musculoskeletal-no pedal edema, no calf tenderness Genitourinary-deferred Neuro-awake alert oriented x3, Psychiatric-not agitated, cooperative, Labs/Diagnostic Data Labs/Diagnostic Data Laboratory Tests Test 05/03/24 16:15 05/03/24 06:41 05/03/24 02:27 Range/Units Potassium Level 2.9 L 2.9 L 2.9 L 3.5-5.1 mmol/L White Blood Count 9.1 9.7 4.4-10.8 10^3/uL Red Blood Count 3.81 L 3.80 L 4.5-5.90 10^6/uL Hemoglobin 12.7 L 12.5 L 13.5-17.5 g/dL Hematocrit 36.9 L 37.0 L 41.0-53.0 % Mean Corpuscular Volume 96.8 97.4 80.0-100.0 fL Mean Corpuscular Hemoglobin 33.4 H 32.8 H 28.0-32.0 pg Mean Corpuscular Hemoglobin Concent 34.5 33.7 32.0-36.0 g/dL Red Cell Distribution Width 16.1 H 16.2 H 11.8-14.3 % Platelet Count 175 169 140-450 10^3/uL Mean Platelet Volume 7.5 7.3 6.9-10.8 fL Neutrophils (%) (Auto) 86.5 H 85.9 H 37.0-80.0 % Lymphocytes (%) (Auto) 2.8 L 3.5 L 10.0-50.0 % Monocytes (%) (Auto) 9.6 10.1 0.0-12.0 % Eosinophils (%) (Auto) 0.4 0.3 0.0-7.0 % Basophils (%) (Auto) 0.7 0.2 0.0-2.0 % Neutrophils # (Auto) 7.9 8.3 1.6-8.6 10 ^3/uL Lymphocytes # (Auto) 0.3 L 0.3 L 0.4-5.4 10 ^3/uL Monocytes # (Auto) 0.9 1.0 0-1.3 10 ^3/uL Eosinophils # (Auto) 0 0 0-0.8 10 ^3/uL Basophils # (Auto) 0.1 0 0-0.2 10 ^3/uL Nucleated Red Blood Cells 0.0 0.0 % Sodium Level 141 140 136-145 mmol/L Chloride Level 105 105 98-107 mmol/L Carbon Dioxide Level 27 25 20-31 mmol/L Anion Gap 9 10 5-15 Blood Urea Nitrogen 46 H 44 H 9-23 mg/dL Creatinine 2.07 H 2.08 H 0.700-1.30 mg/dL Glomerular Filtration Rate Calc 34 34 >90 mL/min BUN/Creatinine Ratio 22.2 H 21.2 H 10.0-20.0 Serum Glucose 89 98 74-106 mg/dL Hemoglobin A1c 5.5 <5.7 % A1C Calcium Level 9.4 9.3 8.7-10.4 mg/dL Magnesium Level 1.6 1.6-2.6 mg/dL Total Bilirubin 1.3 H 1.4 H 0.2-1.0 mg/dL Aspartate Amino Transferase (AST) 23 22 13-40 U/L Alanine Aminotransferase (ALT) < 9 < 9 7-40 U/L Alkaline Phosphatase 89 83 46-116 U/L Total Protein 5.9 5.9 5.7-8.2 g/dL Albumin 3.3 3.4 3.2-4.8 g/dL Triglycerides Level 110 < 150 mg/dL Cholesterol Level 93 < 200 mg/dL LDL Cholesterol 41 < 100 mg/dL HDL Cholesterol 24 L 40-59 mg/dL Thyroid Stimulating Hormone (TSH) 1.22 0.55-4.78 uIU/mL Prothrombin Time 15.1 H 9.3-11.8 sec Prothrombin Time INR 1.47 H 0.9-1.15 Activated Partial Thromboplast Time 29.4 24.5-34.5 SEC Assessment Acute kidney injury---unknown baseline---possible hemodynamic mediated etiology in the setting of hypotension Hypokalemia sec to prostate cancer therapy?? Prostate cancer with bony metastasis on harmonal therapy ??(unknown regimen for now) Atrial fibrillation on warfarin Recommendations Aggressive potassium replacement Check urine potassium Obtain prostate cancer medication regimen IV fluids given hypotension Obtain chest x-ray Urine electrolytes as ordered, Kidney ultrasound as ordered Urology evaluation as outpatient Check magnesium and phosphorus Avoid nephrotoxins We will follow closely Reviewed vital signs, lab work, imaging studies, medications, microbiology, other physician recommendations Total time spent 80 minutes More than 50% of the time spent providing direct [id number]-[id number] care . Thank you for allowing me to participate in the care of your patient. Plan discussed with: Patient, Son LARS PAN MD May 03, 2024 19:12
[2024-05-03 20:00] VITALS: PULSE 103; PULSE 73; RESP 18; O2SAT 93
[2024-05-03 21:00] VITALS: BP 113/75; PULSE 73; RESP 17; TEMP 98.5; O2SAT 93
[2024-05-03] MEDS: SODIUM CHLORIDE 0.9% 1,000 ML IV ONE (21:56)
[2024-05-04] VITALS (9 sets, daily range): BP systolic 119–126; BP diastolic 74–81; PULSE 47–101; RESP 15–19; TEMP 97.7–98.2; O2SAT 91–95
--- NOTE | 2024-05-04 03:04 | DVH ---
INDICATION: MARIA EUGENIA TECHNIQUE: Multiple real-time sonographic images of the kidneys and bladder were obtained. COMPARISON: None FINDINGS: The right kidney measures 13 cm in length, which is normal in size. The left kidney measures 13 cm in length, which is normal in size. There is normal echogenicity of th e left kidney. No hydronephrosis. Multiple simple cysts are noted measuring up to 7 cm in the left kidney and 5 cm in the right kidney. . 1.7 cm nonobstructing right renal stone. Moderate right hydronephrosis. Small right pleural effusio n. Distended bladder. IMPRESSION: Multiple simple cysts are noted measuring up to 7 cm in the left kidney and 5 cm in the right kidney. 1.7 cm nonobstructing right renal stone. Moderate right hydronephrosis. Small right pleural effusion. Distended bladder.
[2024-05-04 07:47] LABS: Basophils # (auto) 0 10 ^3/uL (0-0.2); Basophils % (auto) 0.5 % (0.0-2.0); Eosinophils # (auto) 0.1 10 ^3/uL (0-0.8); Eosinophils % (auto) 0.7 % (0.0-7.0); Hematocrit 39.8 % (41.0-53.0); Hemoglobin 13.7 g/dL (13.5-17.5); Lymphocytes # (auto) 0.2 10 ^3/uL (0.4-5.4); Lymphocytes % (auto) 2.7 % (10.0-50.0); Mean Corpuscular Hemoglobin 33.5 pg (28.0-32.0); Mean Corpuscular Hgb Conc. 34.3 g/dL (32.0-36.0); Mean Corpuscular Volume 97.6 fL (80.0-100.0); Monocytes # (auto) 0.8 10 ^3/uL (0-1.3); Monocytes % (auto) 8.6 % (0.0-12.0); Neutrophils # (auto) 7.9 10 ^3/uL (1.6-8.6); Neutrophils % (auto) 87.5 % (37.0-80.0); Nucleated Red Blood Cells % 0.1 %; Platelet Count (auto) 190 10^3/uL (140-450); Red Blood Cells 4.08 10^6/uL (4.5-5.90); Red Cell Distribution Width 15.9 % (11.8-14.3); White Blood Cell 9.1 10^3/uL (4.4-10.8)
[2024-05-04 08:09] LABS: Alanine Aminotransferase 12 U/L (7-40); Albumin 3.3 g/dL (3.2-4.8); Alkaline Phosphatase 102 U/L (46-116); Anion Gap 11 (5-15); Aspartate Aminotransferase 30 U/L (13-40); BUN/Creatinine Ratio 24.6 (10.0-20.0); Calcium 9.4 mg/dL (8.7-10.4); Carbon Dioxide 23 mmol/L (20-31); Chloride 106 mmol/L (98-107); Glucose 94 mg/dL (74-106); INR 1.55 (0.9-1.15); Prothrombin Time 15.9 sec (9.3-11.8); Sodium 140 mmol/L (136-145); Total Protein 6.2 g/dL (5.7-8.2)
[2024-05-04 08:14] LABS: Blood Urea Nitrogen 41 mg/dL (9-23); Phosphorus 1.7 mg/dL (2.4-5.1)
[2024-05-04] MEDS: POTASSIUM PHOSPHATE 44 MEQ in D5W 5% 250 ML IV ONE (09:30)
--- NOTE | 2024-05-04 09:43 | DVHINCON2 ---
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 Previously well, he experienced a sudden onset of weakness one day prior to this visit. He reports that he was unable to move due to significant weakness, due to which 911 was called. He also mentions right-sided posterior rib pain, which he initially thought was a rib sprain. There was no report of other systemic symptoms such as chest pain, shortness of breath, or fever. Labs on presentation: WBC 9.7, hemoglobin 12.5, platelets 169,000. Creatinine elevated at 2.08, potassium 2.9. [Last set of labs completed on 03/18/2024 as outpatient revealed a creatinine of 0.64. CBC within normal limits at that time.] Patient underwent a renal ultrasound on 05/04/2024 which showed: Multiple simple cysts are noted measuring up to 7 cm in the left kidney and 5 cm in the right kidney. 1.7 cm nonobstructing right renal stone. Moderate right hydronephrosis. Small right pleural effusion. Distended bladder. CXR on 05/04/2024 showed Probable mild pulmonary edema with possible superimposed bilateral lower lobe airspace disease. Past Medical History Metastatic prostate cancer, initially diagnosed in July 2023 at [facility] with a PSA 3326 Hypertension History of nephrolithiasis Neuropathy Past Surgical History Cholecystectomy Hip surgery, Left: 2007 Cervical radiculopathy, status post C47 ACDF in 1999 Carpal tunnel syndrome, status post carpal tunnel release in April 2021 Family History: Patient reports no known family medical history. Allergies: Coded Allergies: Morphine (Verified Allergy, Severe, 05/03/24) Home Meds Reported Medications Losartan Potassium (Losartan Potassium) 25 Mg Tab, 1 TAB PO DAILY, #90 TAB 1 Refill 05/03/24 Warfarin Sodium (Warfarin Sodium) 5 Mg Tab, TAB PO 05/03/24 Gabapentin (Gabapentin) 600 Mg Tab, 1 TAB PO TID 05/03/24 Carvedilol (Carvedilol) 3.125 Mg Tab, 1 TAB PO BID 05/03/24 Prednisone (Prednisone) 5 Mg Tab, 1 TAB PO DAILY 05/03/24 Docusate Sodium (Docusate Sodium) 100 Mg Cap, 1 CAP PO BID 05/03/24 Current Medications Current Medications Medications (Trade) Dose Ordered Sig/Goyo Route PRN Reason Start Time Stop Time Status Last Admin Carvedilol (Coreg Tablet) 3.125 mg Q12HR PO 05/03/24 10:00 05/03/24 21:56 Sodium Chloride (Saline Lock Ns) 10 ml Q8HR IV 05/03/24 14:00 05/03/24 21:56 Magnesium Sulfate/ Dextrose 100 ml @ 100 mls/hr Q1HR IV 05/03/24 16:00 05/03/24 17:59 DC 05/03/24 18:48 Sodium Chloride 1,000 ml @ 75 mls/hr [id number] IV 05/03/24 22:45 Review of Systems Negative, otherwise as stated above. Vital Signs Vital Signs Date Time Temp Pulse Resp B/P (MAP) Pulse Ox O2 Delivery O2 Flow Rate FiO2 05/04/24 08:00 101 05/04/24 05:00 98.2 19 121/81 (94) 95 98.2 05/03/24 20:00 Room Air* 0 21 Physical Exam General Appearance: Cooperative. in no acute distress Pulmonary/Respiratory: Clear, bilateral breaths sounds. Cardiovascular/Chest: Irregular rate and rhythm. Peripheral Pulses: 2+ Radial (R). 2+ Radial (L). 1+ Pedal (R). 1+ Pedal (L) Abdominal Exam: Normal bowel sounds. Ankle Exam: 4+ pitting edema Lower extremities: 4+ pitting edema Neuro/Mental Status: A/OX4, coherent. Labs/Diagnostic Data Labs Test 05/04/24 06:40 05/03/24 06:41 05/03/24 02:27 Range/Units White Blood Count 9.1 4.4-10.8 10^3/uL Red Blood Count 4.08 L 4.5-5.90 10^6/uL Hemoglobin 13.7 13.5-17.5 g/dL Hematocrit 39.8 L 41.0-53.0 % Mean Corpuscular Volume 97.6 80.0-100.0 fL Mean Corpuscular Hemoglobin 33.5 H 28.0-32.0 pg Mean Corpuscular Hemoglobin Concent 34.3 32.0-36.0 g/dL Red Cell Distribution Width 15.9 H 11.8-14.3 % Platelet Count 190 140-450 10^3/uL Mean Platelet Volume 7.9 6.9-10.8 fL Neutrophils (%) (Auto) 87.5 H 37.0-80.0 % Lymphocytes (%) (Auto) 2.7 L 10.0-50.0 % Monocytes (%) (Auto) 8.6 0.0-12.0 % Eosinophils (%) (Auto) 0.7 0.0-7.0 % Basophils (%) (Auto) 0.5 0.0-2.0 % Neutrophils # (Auto) 7.9 1.6-8.6 10 ^3/uL Lymphocytes # (Auto) 0.2 L 0.4-5.4 10 ^3/uL Monocytes # (Auto) 0.8 0-1.3 10 ^3/uL Eosinophils # (Auto) 0.1 0-0.8 10 ^3/uL Basophils # (Auto) 0 0-0.2 10 ^3/uL Nucleated Red Blood Cells 0.1 % Prothrombin Time 15.9 H 9.3-11.8 sec Prothrombin Time INR 1.55 H 0.9-1.15 Sodium Level 140 136-145 mmol/L Potassium Level 3.0 L 3.5-5.1 mmol/L Chloride Level 106 98-107 mmol/L Carbon Dioxide Level 23 20-31 mmol/L Anion Gap 11 5-15 Blood Urea Nitrogen 41 H 9-23 mg/dL Creatinine 1.67 H 0.700-1.30 mg/dL Glomerular Filtration Rate Calc 44 >90 mL/min BUN/Creatinine Ratio 24.6 H 10.0-20.0 Serum Glucose 94 74-106 mg/dL Calcium Level 9.4 8.7-10.4 mg/dL Phosphorus Level 1.7 L 2.4-5.1 mg/dL Magnesium Level 2.0 1.6-2.6 mg/dL Total Bilirubin 1.0 0.2-1.0 mg/dL Aspartate Amino Transferase (AST) 30 13-40 U/L Alanine Aminotransferase (ALT) 12 7-40 U/L Alkaline Phosphatase 102 46-116 U/L Total Protein 6.2 5.7-8.2 g/dL Albumin 3.3 3.2-4.8 g/dL Hemoglobin A1c 5.5 <5.7 % A1C Triglycerides Level 110 < 150 mg/dL Cholesterol Level 93 < 200 mg/dL LDL Cholesterol 41 < 100 mg/dL HDL Cholesterol 24 L 40-59 mg/dL Thyroid Stimulating Hormone (TSH) 1.22 0.55-4.78 uIU/mL Activated Partial Thromboplast Time 29.4 24.5-34.5 SEC Assessment 1. Prostate cancer, with known diffuse skeletal metastasis --Diagnosed in July 2023 with a PSA of >3000. --On ADT and abiraterone/prednisone, as well as Xgeva. --Also s/p palliative RT to the left hip from 03/12-04/03 due to development of severe left hip pain. 2. Acute kidney injury 3. Right-sided nehprolithiasis and hydronephrosis --Noted to have a Cr of 2.08 on admission, baseline Cr 0.64. --Hydronephrosis secondary to urinary retention 4. Mild pulmonary edema, possible minor pneumonia. 5. Hypokalemia, potentially secondary to abiraterone Plan/Recommendation - Urology consultation. - Nurse to check PVR. May need queen catheter. - Aggressive potassium replacement. - Consider mild diuresis for pulmonary congestion. - Follow-up imaging to evaluate prostate cancer status. - Recheck PSA. Plan discussed with: Patient MEJIA MCCARTHY MD May 04, 2024 09:43
--- NOTE | 2024-05-04 09:53 | DVH ---
CHEST RADIOGRAPH Indication: r/o edema Technique: Single frontal view of the chest was obtained COMPARISON: None FINDINGS: Lines and Tubes: None Lungs: Mild congestion and bilateral lower lobe airspace disease. Pleura: Possible small bilateral pleural effusions. No pneumothorax. Cardiomediastinal contours: Unremarkable Bones: Unremarkable IMPRESSION: Probable mild pulmonary edema with possible superimposed bilateral lower lobe airspace disease.
[2024-05-04] MEDS: POTASSIUM CHL 20 Meq TABLET PO SCH (11:15)
[2024-05-04] MEDS: SODIUM CHLORIDE 0.9% 1,000 ML IV SCH (11:33)
--- NOTE | 2024-05-04 13:03 | DVHPN2 ---
Reviewed: Care Plan, H&P, Labs, Medications, Previous Orders, Radiology Changes from previous H/P or p: No Changes Eyes: No Pain, No Vision change, No Conjunctivae inflammation, No Eyelid inflammation, No Other, No Redness ENT: No Ear pain, No Ear discharge, No Nose pain, No Nose discharge, No Nose congestion, No Mouth pain, No Mouth swelling, No Throat pain, No Throat swelling, No Other Cardiovascular: Chest Pain; No Palpitations, No Orthopnea, No Paroxysmal Noc. Dyspnea, No Edema, No Lt Headedness, No Other Respiratory: No Cough, No Dry; Shortness of breath; No SOB with excertion, No Wheezing, No Hemoptysis, No Pleuritic Pain, No Sputum; Other (SOB at rest) Gastrointestinal: No Nausea, No Vomiting, No Abdominal Pain, No Diarrhea, No Constipation, No Melena, No Hematochezia, No Other Genitourinary: No Dysuria, No Frequency, No Incontinence, No Hematuria, No Retention, No Other Musculoskeletal: No other, No neck pain, No shoulder pain, No arm pain, No back pain, No hand pain, No leg pain, No foot pain Skin: No Rash, No Lesions, No Jaundice, No Bruising, No Other Objective Vitals Vital Signs Date Time Temp Pulse Resp B/P (MAP) Pulse Ox O2 Delivery O2 Flow Rate FiO2 05/04/24 12:08 52 126/79 05/04/24 11:01 16 92 Room Air* 0 21 05/04/24 09:00 97.7 97.7 Intake/Output Intake and Output 05/04/24 07:00 Intake Total 700 ml Output Total 985 ml Balance -285 ml Intake Oral 700 ml Output Urine Total 985 ml Medications Current Medications Medications Dose Ordered Sig/Goyo Route Start Time Stop Time Status Last Admin Dose Admin Carvedilol 3.125 mg Q12HR PO 05/03/24 10:00 05/04/24 12:08 3.125 MG Warfarin Sodium RX PROTOCOL PER PHARMACY PO 05/03/24 06:30 Sodium Chloride 10 ml Q8HR IV 05/03/24 14:00 05/03/24 21:56 10 ML Acetaminophen/ Hydrocodone Bitart 1 tab Q4HP PRN PO 05/03/24 06:30 Ondansetron HCl 4 mg Q4HP PRN IV 05/03/24 06:30 Docusate Sodium 100 mg BIDPRN PRN PO 05/03/24 06:30 Acetaminophen 650 mg Q6HP PRN PO 05/03/24 06:30 Nitroglycerin 0.4 mg Q5MINP PRN SL 05/03/24 07:30 Morphine Sulfate 2 mg Q30M PRN IV 05/03/24 07:30 Hold Sodium Chloride 1,000 ml @ 75 mls/hr [id number] IV 05/03/24 22:45 05/04/24 11:33 75 MLS/HR Laboratory Results Laboratory Tests 05/04/24 06:40 Chemistry Test 05/04/24 06:40 Albumin 3.3 g/dL (3.2-4.8) Calcium Level 9.4 mg/dL (8.7-10.4) Magnesium Level 2.0 mg/dL (1.6-2.6) Phosphorus Level 1.7 mg/dL (2.4-5.1) L Total Protein 6.2 g/dL (5.7-8.2) Coagulation Test 05/04/24 06:40 Prothrombin Time 15.9 sec (9.3-11.8) H Prothrombin Time INR 1.55 (0.9-1.15) H LFT Test 05/04/24 06:40 Alanine Aminotransferase (ALT) 12 U/L (7-40) Alkaline Phosphatase 102 U/L (46-116) Aspartate Amino Transferase (AST) 30 U/L (13-40) Total Bilirubin 1.0 mg/dL (0.2-1.0) Labs and/or images reviewed: Labs reviewed by me, Image(s) reviewed by me Assessment/Plan Assessment/Plan Acute generalized weakness Acute hypokalemia potassium 2.9: Replace potassium Acute kidney injury with a BUN creatinine 46 and 2.107 Nephrology consult appreciated Hypertension History of kidney stones 1.7 cm right kidney stone: Consult for Urology Dr. Irvin Acute Bilateral pneumonia: Zosyn History of prostatic cancer diagnosed Jul 2023 at [place] with Mets to the pelvis status post radiation therapy to the pelvic meds History of DVT bilateral lower extremities on Coumadin AFib on Coumadin Time spent 70 minutes Patient is full code Advanced care planning time 20 minutes Patient came from [facility] Plan discussed with: Patient Date of Service: May 04, 2024 Billing Provider: MARELY HANNA MD Common Visit Codes: 10183-[id number] CARE 30-74 MIN MARELY HANNA MD May 04, 2024 13:03
--- NOTE | 2024-05-04 15:42 | DVH ---
CLINICAL INFORMATION: 68 years old, Male; PAIN. TECHNIQUE: Axial CT images of the chest, abdomen, and pelvis were obtained without IV contrast. Clif nal and sagittal reformatted images were obtained, reviewed, and stored. Evaluation of the parenchyma l organs and vasculature is limited without IV contrast. Evaluation of the bowel and mesentery is huang ited without oral contrast. All CT scans at this medical facility are performed using dose modulation techniques as appropriate to a performed exam including the following: Automated exposure control wa s utilized; adjustment of the MA and/or KV according to patient size; and use of iterative reconstruc tion technique. CTDIvol = 23.31 mGy DLP = 1598.95 mGy-cm COMPARISON: None FINDINGS: CT CHEST: Aorta: Ascending aortic aneurysm measuring up to 4.4 cm in diameter. Scattered atherosclerotic calcif ication. Cardiac: [id number] cardiomegaly. Dense coronary artery calcification and/or stents. Mediastinum/lindsey: No mass or adenopathy. Lungs: Small bilateral pleural effusions with overlying atelectasis and bilateral lower lobe consolid ations. Pulmonary arteries: Dilated main pulmonary artery measuring up to 3.7 cm in diameter, may be seen wit h pulmonary arterial hypertension. Chest wall: No mass or other abnormality. Bones: Sclerotic metastatic disease is seen in multiple ribs bilaterally and at multiple thoracic christel tebral levels, including T1, T2, T3, T4, T8, T9, and T12. Lucent lesions are seen in T11. Likely path ologic compression fracture at T9. Chronic ununited fracture involving the lesion in the lateral left 8th rib. Sclerotic lesions are also seen in both scapulae. CT ABDOMEN/PELVIS: Liver: Unremarkable. No abnormal density or focal lesion identified on noncontrast CT. Biliary: Cholecystectomy. Spleen: Calcified granuloma in the spleen. Small amount of perisplenic fluid. Pancreas: Moderate atrophy. Adrenal glands: Unremarkable. No mass. Kidneys and bladder: Moderate to severe right hydronephrosis and hydroureter and moderate left hydron ephrosis and hydroureter. No obstructing calculi visualized. Moderately distended bladder. Multiple bilateral renal cysts. Nonobstructing calculus in the upper pole of the right kidney measures up to 1 .8 cm. Aorta: Moderate atherosclerotic calcification. No abdominal aortic aneurysm. Retroperitoneum: No mass or lymphadenopathy. Bowel/mesentery: No small bowel obstruction. Appendix is not visualized. Scattered colonic diverticul a without adjacent inflammatory changes to suggest diverticulitis. Moderate perirectal stranding, sug gesting proctitis. Pelvic organs: Obscured by beam hardening artifact from the left hip prosthesis. Abdominal wall: Diffuse body wall edema / anasarca. Bones: Extensive osseous metastatic disease in the pelvis with mixed sclerotic and lytic appearance. Lesions also noted in the lumbar spine at L3, L4, and L5. Postsurgical changes of left hip arthroplas ty. IMPRESSION: 1. Extensive osseous metastatic disease in the chest, abdomen, and pelvis. Chronic appearing patholog ic fractures of the T9 vertebral body and left lateral 8th rib. 2. Ascending aortic aneurysm. 3. Nykt-df-dfodcful cardiomegaly. 4. Dilated main pulmonary artery suggesting a degree of pulmonary arterial hypertension. 5. Small bilateral pleural effusions with overlying atelectasis and bilateral lower lobe consolidatio ns. 6. Severe right and moderate left hydronephrosis and hydroureter with no obstructing calculi visualiz ed. Moderately distended bladder. Findings may be due to bladder outlet obstruction. 7. Findings consistent with proctitis in the appropriate clinical setting. 8. Additional findings as detailed above.
--- NOTE | 2024-05-04 15:46 | DVHPN2 ---
Progress Note Date Seen: May 04, 2024 Medical Necessity Reason Pt with a Central, PICC or Fol: No Subjective Patient reports: No new complaints Review of Systems: HEENT:Normal, CVS:Normal, RESPIRATORY:Normal, GI:Normal, :Normal, MSK:Normal, NEURO:Normal Objective vital signs Vital Sign Date Time Temp Pulse Resp B/P (MAP) Pulse Ox O2 Delivery O2 Flow Rate FiO2 05/04/24 12:08 52 126/79 05/04/24 11:01 16 92 Room Air* 0 21 05/04/24 09:00 97.7 97.7 Total Intake and Output 05/03/24 05/03/24 05/04/24 15:00 23:00 07:00 Intake Total 500 ml 200 ml Output Total 385 ml 600 ml Balance 115 ml -400 ml medications Current Medications Medications Dose Ordered Sig/Goyo Route Start Time Stop Time Status Last Admin Dose Admin Carvedilol 3.125 mg Q12HR PO 05/03/24 10:00 05/04/24 12:08 3.125 MG Warfarin Sodium RX PROTOCOL PER PHARMACY PO 05/03/24 06:30 Sodium Chloride 10 ml Q8HR IV 05/03/24 14:00 05/03/24 21:56 10 ML Acetaminophen/ Hydrocodone Bitart 1 tab Q4HP PRN PO 05/03/24 06:30 Ondansetron HCl 4 mg Q4HP PRN IV 05/03/24 06:30 Docusate Sodium 100 mg BIDPRN PRN PO 05/03/24 06:30 Acetaminophen 650 mg Q6HP PRN PO 05/03/24 06:30 Nitroglycerin 0.4 mg Q5MINP PRN SL 05/03/24 07:30 Morphine Sulfate 2 mg Q30M PRN IV 05/03/24 07:30 Hold Piperacillin Sod/ Tazobactam Sod 100 ml @ 25 mls/hr Q8HR IV 05/04/24 14:00 Examination: GENERAL:Normal, HEENT:Normal, NECK:Normal, LUNGS:Normal, CVS:Normal, ABDOMEN:Normal, MSK:Normal, SKIN:Normal, NEURO:Normal, :Normal laboratory and microbiology Laboratory Tests 05/04/24 06:40 Test 05/04/24 06:40 Range/Units Serum Glucose 94 74-106 mg/dL Problem List/Assessment/Plan Problem List/Assessment/Plan Acute kidney injury---baseline creatinine 0.8---possible hemodynamic mediated etiology in the setting of hypotension/obstructive etiology Hypokalemia sec to prostate cancer therapy Prostate cancer with bony metastasis Atrial fibrillation on warfarin Nephrolithiasis right Right hydronephrosis Recommendations Aggressive potassium replacement Check urine potassium DC IV fluids Urine electrolytes as ordered, Kidney ultrasound --noted kidney stone and moderate right hydronephrosis Urology evaluation //Saeed catheter now Replace magnesium and phosphorus prn Avoid nephrotoxins We will follow closely Seen with RN bedside Plan discussed with: Patient My Orders My Orders Orders - LARS PAN MD Procedure Category Date Status Time Urinalysis LAB 05/03/24 Logged 22:33 Urine Creatinine LAB 05/03/24 Logged 22:33 Urine Protein LAB 05/03/24 Logged 22:33 Urine Sodium LAB 05/03/24 Logged 22:33 Basic Metabolic Panel LAB 05/05/24 Verified 05:00 Basic Metabolic Panel LAB 05/06/24 Verified 05:00 Basic Metabolic Panel LAB 05/07/24 Verified 05:00 Basic Metabolic Panel LAB 05/08/24 Verified 05:00 Basic Metabolic Panel LAB 05/09/24 Verified 05:00 Basic Metabolic Panel LAB 05/10/24 Verified 05:00 Kidney US 05/04/24 Resulted 01:58 Communication Order ORDERS 05/03/24 Transmitted 22:37 Chest Xray 1 View XY 05/04/24 Resulted 04:00 Urine Potassium LAB 05/03/24 Logged 22:45 Potassium Phosphate PHA 05/04/24 In Process 09:30 Bladder Scan ORDERS 05/04/24 Transmitted 09:19 * Urology Consult CONS 05/04/24 Transmitted 09:23 Insert Saeed Catheter JIMI 05/04/24 In Process 12:45 LARS PAN MD May 04, 2024 15:46
[2024-05-04] MEDS: PIPERACILLIN-TAZOB 3.375GM 100 ML IV SCH (16:45)
--- NOTE | 2024-05-04 17:02 | DVHSR ---
APPROVED REPORT EXAM: Two-dimensional and M-mode echocardiogram with Doppler and color Doppler. Blood Pressure: 121/81 mmHg INDICATION Evaluate cardiac function RISK FACTORS Height: 6'4", Weight: 233 DIMENSIONS LVDd4.7 (3.8-5.7cm)LA (2D)4.7 (1.9-4.0cm)Aortic Root4.5 (2.0-3.7cm) LVDs3.8 (2.5-4.0cm)LA (MM) (1.9-4.0cm)Aortic Cusp Exc1.4 (1.5-2.0cm) EF (%) 45.0 (55-70%)Rt. Atrium5.1 (1.9-4.0cm)Asc. Aorta cm IVSd1.3 (0.7-1.1cm)RV (D) (1.8-2.4cm) PWd1.2 (0.7-1.1cm) Mitral Valve MitralMitral Stenosis E wave1.09m/sMV Mean GR.mmHg E/A ratio0.02D MVAcm2 Aortic Valve Aortic ValveAortic Stenosis V11.02m/Mac Mean GR.3mmHg V21.17m/Mac Peak GR.6mmHg LVOT Diameter2.2 (1.8-2.4cm)Doppler AVA3.31cm2 AI P 1/2 Qrxj209.23ms Pulmonic Valve V20.98m/s Tricuspid Valve TR Velocity2.93m/s [id number] Other Information Quality : LimitedRhythm : Technically limited study due to body habitus, patient lying flat. Conclusion lvef 50% by visual estimate grade 2 diastolic dysfunction RV normal function marked enlarged RA enlarged moderate to severe tricuspid regurg
[2024-05-04] MEDS: WARFARIN SODIUM 5 MG TAB PO ONE (17:16)
--- NOTE | 2024-05-04 17:37 | DVHINCON2 ---
Date of service: May 04, 2024 Referring Physician Latanya Reason for Consultation urinary retention History of Present Illness advanced prostate cancer according to pt PSA above 3000 with bone mets and ADT with succes and recent radiation to pelvis pt in urinary retention with bilateral hydroureteronephrosis; nonobstructing stone right kidney, queen draining clear urine ;pt comfortable currently Past Medical History reviewed Past Surgical History reiewed Family History: Patient reports no known family medical history. Allergies: Coded Allergies: Morphine (Verified Allergy, Severe, 05/03/24) Home Meds Reported Medications Losartan Potassium (Losartan Potassium) 25 Mg Tab, 1 TAB PO DAILY, #90 TAB 1 Refill 05/03/24 Warfarin Sodium (Warfarin Sodium) 5 Mg Tab, TAB PO 05/03/24 Gabapentin (Gabapentin) 600 Mg Tab, 1 TAB PO TID 05/03/24 Carvedilol (Carvedilol) 3.125 Mg Tab, 1 TAB PO BID 05/03/24 Prednisone (Prednisone) 5 Mg Tab, 1 TAB PO DAILY 05/03/24 Docusate Sodium (Docusate Sodium) 100 Mg Cap, 1 CAP PO BID 05/03/24 Current Medications Current Medications Medications (Trade) Dose Ordered Sig/Goyo Route PRN Reason Start Time Stop Time Status Last Admin Sodium Chloride 1,000 ml @ 75 mls/hr [id number] IV 05/03/24 22:45 05/04/24 12:46 DC 05/04/24 11:33 Potassium Chloride (Klor-Con Tablet) 40 meq Q2H PO 05/04/24 09:30 05/04/24 11:31 DC 05/04/24 12:07 Piperacillin Sod/ Tazobactam Sod 100 ml @ 25 mls/hr Q8HR IV 05/04/24 14:00 05/04/24 16:45 Review of Systems reviewed Vital Signs Vital Signs Date Time Temp Pulse Resp B/P (MAP) Pulse Ox O2 Delivery O2 Flow Rate FiO2 05/04/24 13:00 97.9 90 16 125/80 (95) 91 97.9 05/04/24 11:01 Room Air* 0 21 Physical Exam queen in place,urine clear Labs/Diagnostic Data Labs Test 05/04/24 06:40 05/03/24 06:41 05/03/24 02:27 Range/Units White Blood Count 9.1 4.4-10.8 10^3/uL Red Blood Count 4.08 L 4.5-5.90 10^6/uL Hemoglobin 13.7 13.5-17.5 g/dL Hematocrit 39.8 L 41.0-53.0 % Mean Corpuscular Volume 97.6 80.0-100.0 fL Mean Corpuscular Hemoglobin 33.5 H 28.0-32.0 pg Mean Corpuscular Hemoglobin Concent 34.3 32.0-36.0 g/dL Red Cell Distribution Width 15.9 H 11.8-14.3 % Platelet Count 190 140-450 10^3/uL Mean Platelet Volume 7.9 6.9-10.8 fL Neutrophils (%) (Auto) 87.5 H 37.0-80.0 % Lymphocytes (%) (Auto) 2.7 L 10.0-50.0 % Monocytes (%) (Auto) 8.6 0.0-12.0 % Eosinophils (%) (Auto) 0.7 0.0-7.0 % Basophils (%) (Auto) 0.5 0.0-2.0 % Neutrophils # (Auto) 7.9 1.6-8.6 10 ^3/uL Lymphocytes # (Auto) 0.2 L 0.4-5.4 10 ^3/uL Monocytes # (Auto) 0.8 0-1.3 10 ^3/uL Eosinophils # (Auto) 0.1 0-0.8 10 ^3/uL Basophils # (Auto) 0 0-0.2 10 ^3/uL Nucleated Red Blood Cells 0.1 % Prothrombin Time 15.9 H 9.3-11.8 sec Prothrombin Time INR 1.55 H 0.9-1.15 Sodium Level 140 136-145 mmol/L Potassium Level 3.0 L 3.5-5.1 mmol/L Chloride Level 106 98-107 mmol/L Carbon Dioxide Level 23 20-31 mmol/L Anion Gap 11 5-15 Blood Urea Nitrogen 41 H 9-23 mg/dL Creatinine 1.67 H 0.700-1.30 mg/dL Glomerular Filtration Rate Calc 44 >90 mL/min BUN/Creatinine Ratio 24.6 H 10.0-20.0 Serum Glucose 94 74-106 mg/dL Calcium Level 9.4 8.7-10.4 mg/dL Phosphorus Level 1.7 L 2.4-5.1 mg/dL Magnesium Level 2.0 1.6-2.6 mg/dL Total Bilirubin 1.0 0.2-1.0 mg/dL Aspartate Amino Transferase (AST) 30 13-40 U/L Alanine Aminotransferase (ALT) 12 7-40 U/L Alkaline Phosphatase 102 46-116 U/L Total Protein 6.2 5.7-8.2 g/dL Albumin 3.3 3.2-4.8 g/dL Hemoglobin A1c 5.5 <5.7 % A1C Triglycerides Level 110 < 150 mg/dL Cholesterol Level 93 < 200 mg/dL LDL Cholesterol 41 < 100 mg/dL HDL Cholesterol 24 L 40-59 mg/dL Thyroid Stimulating Hormone (TSH) 1.22 0.55-4.78 uIU/mL Activated Partial Thromboplast Time 29.4 24.5-34.5 SEC Assessment advanced prostate ca on ADT, urinary rention with hydro and ARF Plan/Recommendation continue queen, pt may need TURP in future Plan discussed with: Patient RANDAL GALINDO MD May 04, 2024 17:37
[2024-05-05] VITALS (8 sets, daily range): BP systolic 95–119; BP diastolic 60–73; PULSE 86–100; RESP 15–19; TEMP 97.9–99.1; O2SAT 94–98
--- NOTE | 2024-05-05 09:20 | DVHPN2 ---
Progress Note Date Seen: May 05, 2024 Medical Necessity Reason Pt with a Central, PICC or Fol: No Subjective Patient reports: Feels better Other Systems: feels well pt has hx of chronic afib Objective vital signs Vital Sign Date Time Temp Pulse Resp B/P (MAP) Pulse Ox O2 Delivery O2 Flow Rate FiO2 05/05/24 05:00 99.1 86 19 105/70 (82) 95 99.1 05/04/24 20:00 Room Air* 0 21 Total Intake and Output 05/04/24 05/04/24 05/05/24 15:00 23:00 07:00 Intake Total 200 ml 458 ml 828 ml Output Total 1300 ml 2800 ml Balance 200 ml -842 ml -1972 ml medications Current Medications Medications Dose Ordered Sig/Goyo Route Start Time Stop Time Status Last Admin Dose Admin Carvedilol 3.125 mg Q12HR PO 05/03/24 10:00 05/04/24 21:36 3.125 MG Warfarin Sodium RX PROTOCOL PER PHARMACY PO 05/03/24 06:30 Sodium Chloride 10 ml Q8HR IV 05/03/24 14:00 05/05/24 05:26 10 ML Acetaminophen/ Hydrocodone Bitart 1 tab Q4HP PRN PO 05/03/24 06:30 Ondansetron HCl 4 mg Q4HP PRN IV 05/03/24 06:30 Docusate Sodium 100 mg BIDPRN PRN PO 05/03/24 06:30 Acetaminophen 650 mg Q6HP PRN PO 05/03/24 06:30 Nitroglycerin 0.4 mg Q5MINP PRN SL 05/03/24 07:30 Morphine Sulfate 2 mg Q30M PRN IV 05/03/24 07:30 Hold Piperacillin Sod/ Tazobactam Sod 100 ml @ 25 mls/hr Q8H IV 05/05/24 09:00 Examination: GENERAL:Abnormal, HEENT:Abnormal, LUNGS:Abnormal, CVS:Abnormal, ABDOMEN:Abnormal laboratory and microbiology Laboratory Tests 05/04/24 06:40 Test 05/04/24 06:40 Range/Units Serum Glucose 94 74-106 mg/dL Problem List/Assessment/Plan Problem List/Assessment/Plan prostate cancer with bony mets Right heart failure chronic afib , did poorly with doac, on coumadin hx of dvt rate controlled cont his coumadin good UOP with queen poor/ guarded prognosis Plan discussed with: Patient Date of Service: May 05, 2024 Billing Provider: RANGEL SMITH MD Common Visit Codes: NOT BILLABLE RANGEL SMITH MD May 05, 2024 09:20
[2024-05-05] MEDS: PIPERACILLIN-TAZOB 3.375GM 100 ML IV SCH (09:38)
--- NOTE | 2024-05-05 10:35 | DVHPN2 ---
Reviewed: Care Plan, H&P, Labs, Medications, Previous Orders, Radiology Changes from previous H/P or p: No Changes Eyes: No Pain, No Vision change, No Conjunctivae inflammation, No Eyelid inflammation, No Other, No Redness ENT: No Ear pain, No Ear discharge, No Nose pain, No Nose discharge, No Nose congestion, No Mouth pain, No Mouth swelling, No Throat pain, No Throat swelling, No Other Cardiovascular: Chest Pain; No Palpitations, No Orthopnea, No Paroxysmal Noc. Dyspnea, No Edema, No Lt Headedness, No Other Respiratory: No Cough, No Dry; Shortness of breath; No SOB with excertion, No Wheezing, No Hemoptysis, No Pleuritic Pain, No Sputum; Other (SOB at rest) Gastrointestinal: No Nausea, No Vomiting, No Abdominal Pain, No Diarrhea, No Constipation, No Melena, No Hematochezia, No Other Genitourinary: No Dysuria, No Frequency, No Incontinence, No Hematuria, No Retention, No Other Musculoskeletal: No other, No neck pain, No shoulder pain, No arm pain, No back pain, No hand pain, No leg pain, No foot pain Skin: No Rash, No Lesions, No Jaundice, No Bruising, No Other Objective Vitals Vital Signs Date Time Temp Pulse Resp B/P (MAP) Pulse Ox O2 Delivery O2 Flow Rate FiO2 05/05/24 09:39 100 119/73 05/05/24 09:00 97.9 16 98 97.9 05/04/24 20:00 Room Air* 0 21 Intake/Output Intake and Output 05/05/24 07:00 Intake Total 1486 ml Output Total 4100 ml Balance -2614 ml Intake Oral 766 ml IV Total 720 ml Output Urine Total 4100 ml # Bowel Movements 2 Medications Current Medications Medications Dose Ordered Sig/Goyo Route Start Time Stop Time Status Last Admin Dose Admin Carvedilol 3.125 mg Q12HR PO 05/03/24 10:00 05/05/24 09:39 3.125 MG Warfarin Sodium RX PROTOCOL PER PHARMACY PO 05/03/24 06:30 Sodium Chloride 10 ml Q8HR IV 05/03/24 14:00 05/05/24 05:26 10 ML Acetaminophen/ Hydrocodone Bitart 1 tab Q4HP PRN PO 05/03/24 06:30 Ondansetron HCl 4 mg Q4HP PRN IV 05/03/24 06:30 Docusate Sodium 100 mg BIDPRN PRN PO 05/03/24 06:30 Acetaminophen 650 mg Q6HP PRN PO 05/03/24 06:30 Nitroglycerin 0.4 mg Q5MINP PRN SL 05/03/24 07:30 Morphine Sulfate 2 mg Q30M PRN IV 05/03/24 07:30 Hold Piperacillin Sod/ Tazobactam Sod 100 ml @ 25 mls/hr Q8H IV 05/05/24 09:00 05/05/24 09:38 25 MLS/HR Laboratory Results Laboratory Tests 05/04/24 06:40 Labs and/or images reviewed: Labs reviewed by me, Image(s) reviewed by me Assessment/Plan Assessment/Plan Acute generalized weakness Acute hypokalemia potassium 2.9: Replace potassium Acute kidney injury with BUN creatinine 46 and 2.107 Nephrology consult appreciated Hypertension History of kidney stones 1.7 cm right kidney stone: Consult for Urology Dr. Irvin Acute Bilateral lower lobe pneumonia: Zosyn History of prostatic cancer diagnosed Jul 2023 at [facility] with Mets to the chest abdomen pelvis status post radiation therapy to the pelvic mets History of DVT bilateral lower extremities on Coumadin Ascending aortic aneurysm 4.4 cm Pulmonary hypertension Bilateral hydronephrosis secondary to obstructive uropathy: Consult for Dr. Irvin AFib on Coumadin Time spent 65 minutes Patient is full code Advanced care planning time 20 minutes Patient came from [facility] (formerly [facility]3] Plan discussed with: Patient My Orders Orders - MARELY HANNA MD Procedure Category Date Status Time Urine Bacterial CASSIE 05/04/24 Logged Culture 12:44 Blood Culture CASSIE 05/04/24 In Process 12:44 Chst Ab Pel Wo Con-No CT 05/04/24 Resulted Iv/Oral 13:16 Piperacillin-Tazob PHA 05/05/24 In Process 3.375gm (Zosyn 3.375g 09:00 Date of Service: May 05, 2024 Billing Provider: MARELY HANNA MD Common Visit Codes: [id number] CARE 30-74 MIN MARELY HANNA MD May 05, 2024 10:35
[2024-05-05 11:29] LABS: Basophils # (auto) 0 10 ^3/uL (0-0.2); Basophils % (auto) 0.2 % (0.0-2.0); Eosinophils # (auto) 0.1 10 ^3/uL (0-0.8); Eosinophils % (auto) 1.5 % (0.0-7.0); Hematocrit 35.8 % (41.0-53.0); Hemoglobin 12.1 g/dL (13.5-17.5); Lymphocytes # (auto) 0.2 10 ^3/uL (0.4-5.4); Lymphocytes % (auto) 2.9 % (10.0-50.0); Mean Corpuscular Hemoglobin 32.9 pg (28.0-32.0); Mean Corpuscular Hgb Conc. 33.9 g/dL (32.0-36.0); Mean Corpuscular Volume 97.3 fL (80.0-100.0); Monocytes # (auto) 0.6 10 ^3/uL (0-1.3); Monocytes % (auto) 8.5 % (0.0-12.0); Neutrophils # (auto) 6.6 10 ^3/uL (1.6-8.6); Neutrophils % (auto) 86.9 % (37.0-80.0); Platelet Count (auto) 184 10^3/uL (140-450); Red Blood Cells 3.68 10^6/uL (4.5-5.90); White Blood Cell 7.6 10^3/uL (4.4-10.8)
[2024-05-05 11:36] LABS: Chloride 106 mmol/L (98-107); Sodium 139 mmol/L (136-145)
[2024-05-05 11:37] LABS: Anion Gap 7 (5-15); Carbon Dioxide 26 mmol/L (20-31)
[2024-05-05 11:42] LABS: BUN/Creatinine Ratio 31.4 (10.0-20.0); Blood Urea Nitrogen 33 mg/dL (9-23); Glucose 112 mg/dL (74-106); Potassium 3.2 mmol/L (3.5-5.1)
[2024-05-05 11:54] LABS: INR 2.08 (0.9-1.15); Partial Thromboplastin Time 36.5 SEC (24.5-34.5); Prothrombin Time 20.9 sec (9.3-11.8)
[2024-05-05] MEDS: POTASSIUM CHL 20 Meq TABLET PO ONE (14:40)
[2024-05-05] MEDS: FUROSEMIDE 20 MG/2 ML VIAL IV ONE (14:42)
--- NOTE | 2024-05-05 16:46 | DVHPN2 ---
Progress Note Date Seen: May 05, 2024 Medical Necessity Reason Pt with a Central, PICC or Fol: Yes The following are medically ne: Queen Catheter Subjective Patient reports: No new complaints Review of Systems: HEENT:Normal, CVS:Normal, RESPIRATORY:Normal, GI:Normal, :Normal, MSK:Normal, NEURO:Normal Objective vital signs Vital Sign Date Time Temp Pulse Resp B/P (MAP) Pulse Ox O2 Delivery O2 Flow Rate FiO2 05/05/24 14:42 160/74 05/05/24 13:00 98.1 86 16 95 98.1 05/05/24 08:00 Room Air* 0 21 Total Intake and Output 05/04/24 05/04/24 05/05/24 15:00 23:00 07:00 Intake Total 200 ml 458 ml 828 ml Output Total 1300 ml 2800 ml Balance 200 ml -842 ml -1972 ml medications Current Medications Medications Dose Ordered Sig/Goyo Route Start Time Stop Time Status Last Admin Dose Admin Carvedilol 3.125 mg Q12HR PO 05/03/24 10:00 05/05/24 09:39 3.125 MG Warfarin Sodium RX PROTOCOL PER PHARMACY PO 05/03/24 06:30 Sodium Chloride 10 ml Q8HR IV 05/03/24 14:00 05/05/24 14:42 10 ML Acetaminophen/ Hydrocodone Bitart 1 tab Q4HP PRN PO 05/03/24 06:30 Ondansetron HCl 4 mg Q4HP PRN IV 05/03/24 06:30 Docusate Sodium 100 mg BIDPRN PRN PO 05/03/24 06:30 Acetaminophen 650 mg Q6HP PRN PO 05/03/24 06:30 Nitroglycerin 0.4 mg Q5MINP PRN SL 05/03/24 07:30 Morphine Sulfate 2 mg Q30M PRN IV 05/03/24 07:30 Hold Piperacillin Sod/ Tazobactam Sod 100 ml @ 25 mls/hr Q8H IV 05/05/24 09:00 05/05/24 09:38 25 MLS/HR Furosemide 20 mg BIDD IV 05/05/24 18:00 Examination: GENERAL:Normal, HEENT:Normal, NECK:Normal, LUNGS:Normal, CVS:Normal, ABDOMEN:Normal, MSK:Normal, SKIN:Normal, NEURO:Normal, :Normal laboratory and microbiology Laboratory Tests 05/05/24 11:00 Test 05/05/24 11:00 Range/Units Serum Glucose 112 H 74-106 mg/dL Microbiology Date/Time Source Procedure Growth Status 05/04/24 13:59 Blood Blood Culture - Preliminary NO GROWTH AFTER 24 HOURS OF INCUBATION. Resulted Problem List/Assessment/Plan Problem List/Assessment/Plan Acute kidney injury---baseline creatinine 0.8---obstructive etiology +hypotension Hypokalemia sec to prostate cancer therapy Prostate cancer with bony metastasis Atrial fibrillation on warfarin Nephrolithiasis right Right hydronephrosis Recommendations Aggressive potassium replacement Check urine potassium lasix iv gentle Urine electrolytes as ordered, Kidney ultrasound --noted kidney stone and moderate right hydronephrosis Urology evaluation //Queen catheter now Replace magnesium and phosphorus prn renal function improved with queen Plan discussed with: Patient My Orders My Orders Orders - LARS PAN MD Procedure Category Date Status Time Furosemide Injection PHA 05/05/24 In Process (Lasix Injection) 18:00 Potassium Effervesent PHA 05/06/24 Verified Tab (Klor-Con/Ef) 10:00 LARS PAN MD May 05, 2024 16:46
[2024-05-05] MEDS: WARFARIN SODIUM 2 MG TAB PO ONE (17:27)
[2024-05-05] MEDS: FUROSEMIDE 20 MG/2 ML VIAL IV SCH (17:42)
--- NOTE | 2024-05-05 20:54 | DVHINCON2 ---
Date of service: May 04, 2024 Referring Physician Nelson Pelaez DNP Reason for Consultation Acute hypoxic respiratory failure, metastatic lung cancer, and pleural effusion History of Present Illness A 68-year-old man with past medical history of AFib, currently on Coumadin, and lung cancer with possible metastasis to the kidney, presented to the ED on 05/03/24 for evaluation of generalized weakness. Patient reported generalized weakness x3 days with associated chest pain. Currently undergoing radiation therapy, last treatment 2 weeks ago. ED workup showed WBC 9.7, platelets 169, sodium 140, potassium 2.9, BUN 44, creatinine 2.08, GFR 34, glucose 98, total bilirubin 1.4, PT 15.1, INR 1.47, blood pressure 109/60, heart rate 82, temperature 99.1 F, O2 saturation 98% on oxygen. Patient was admitted for further care and pulmonary consultation is requested for evaluation and management due to acute hypoxic respiratory failure, metastatic lung cancer, and pleural effusion. Review of Systems: 14-point review of systems negative unless otherwise noted above. Past Medical History: AFib, on Coumadin. Metastatic lung cancer Past Surgical History: None. Medications: Reviewed. Allergies: Morphine. Family History: No family history of premature CAD. No family history of lung disorders. Social History: Nonsmoker. No alcohol or illicit drug use. Family History: Patient reports no known family medical history. Allergies: Coded Allergies: Morphine (Verified Allergy, Severe, 05/03/24) Home Meds Reported Medications Losartan Potassium (Losartan Potassium) 25 Mg Tab, 1 TAB PO DAILY, #90 TAB 1 Refill 05/03/24 Warfarin Sodium (Warfarin Sodium) 5 Mg Tab, TAB PO 05/03/24 Gabapentin (Gabapentin) 600 Mg Tab, 1 TAB PO TID 05/03/24 Carvedilol (Carvedilol) 3.125 Mg Tab, 1 TAB PO BID 05/03/24 Prednisone (Prednisone) 5 Mg Tab, 1 TAB PO DAILY 05/03/24 Docusate Sodium (Docusate Sodium) 100 Mg Cap, 1 CAP PO BID 05/03/24 Current Medications Current Medications Medications (Trade) Dose Ordered Sig/Goyo Route PRN Reason Start Time Stop Time Status Last Admin Piperacillin Sod/ Tazobactam Sod 100 ml @ 25 mls/hr Q8H IV 05/05/24 09:00 05/05/24 17:27 Furosemide (Lasix Injection) 20 mg BIDD IV 05/05/24 18:00 Potassium Bicarbonate (Klor-Con/Ef) 50 meq DAILY PO 05/06/24 10:00 Vital Signs Vital Signs Date Time Temp Pulse Resp B/P (MAP) Pulse Ox O2 Delivery O2 Flow Rate FiO2 05/05/24 17:42 96/60 05/05/24 16:56 98.1 88 16 96 98.1 05/05/24 08:00 Room Air* 0 21 Physical Exam Gen.: Patient lying in bed in no apparent distress. Breathing on room air. Head: Normocephalic, atraumatic. Eyes: EOMI/PERRLA. Ears: Normal hearing. Normal anatomy. Neck/trachea: Trachea midline, supple. Nose: Normal external anatomy. Mouth: Moist mucous membranes. Chest: Decreased air entry bilaterally. No wheezing or rhonchi. Cardiovascular: Positive S1, positive S2. Regular rate and rhythm. Abdomen: Positive bowel sounds in all 4 quadrants. Soft, non-tender, non- distended. : Deferred. Rectal: Deferred. Skin: Warm, dry. Intact. Extremities: 2+ radial pulses bilaterally. No lower extremity edema. Neuro: Awake, alert, oriented x3. No gross motor or sensory deficits. Cranial nerves II through XII intact. Gait not assessed. Labs/Diagnostic Data Labs Test 05/05/24 11:00 05/04/24 06:40 05/03/24 06:41 Range/Units White Blood Count 7.6 4.4-10.8 10^3/uL Red Blood Count 3.68 L 4.5-5.90 10^6/uL Hemoglobin 12.1 L 13.5-17.5 g/dL Hematocrit 35.8 #L 41.0-53.0 % Mean Corpuscular Volume 97.3 80.0-100.0 fL Mean Corpuscular Hemoglobin 32.9 H 28.0-32.0 pg Mean Corpuscular Hemoglobin Concent 33.9 32.0-36.0 g/dL Red Cell Distribution Width 16.0 H 11.8-14.3 % Platelet Count 184 140-450 10^3/uL Mean Platelet Volume 7.3 6.9-10.8 fL Neutrophils (%) (Auto) 86.9 H 37.0-80.0 % Lymphocytes (%) (Auto) 2.9 L 10.0-50.0 % Monocytes (%) (Auto) 8.5 0.0-12.0 % Eosinophils (%) (Auto) 1.5 0.0-7.0 % Basophils (%) (Auto) 0.2 0.0-2.0 % Neutrophils # (Auto) 6.6 1.6-8.6 10 ^3/uL Lymphocytes # (Auto) 0.2 L 0.4-5.4 10 ^3/uL Monocytes # (Auto) 0.6 0-1.3 10 ^3/uL Eosinophils # (Auto) 0.1 0-0.8 10 ^3/uL Basophils # (Auto) 0 0-0.2 10 ^3/uL Nucleated Red Blood Cells 0.0 % Prothrombin Time 20.9 H 9.3-11.8 sec Prothrombin Time INR 2.08 H 0.9-1.15 Activated Partial Thromboplast Time 36.5 H 24.5-34.5 SEC Sodium Level 139 136-145 mmol/L Potassium Level 3.2 L 3.5-5.1 mmol/L Chloride Level 106 98-107 mmol/L Carbon Dioxide Level 26 20-31 mmol/L Anion Gap 7 5-15 Blood Urea Nitrogen 33 H 9-23 mg/dL Creatinine 1.05 0.700-1.30 mg/dL Glomerular Filtration Rate Calc 77 >90 mL/min BUN/Creatinine Ratio 31.4 H 10.0-20.0 Serum Glucose 112 H 74-106 mg/dL Calcium Level 9.0 8.7-10.4 mg/dL Phosphorus Level 1.7 L 2.4-5.1 mg/dL Magnesium Level 2.0 1.6-2.6 mg/dL Total Bilirubin 1.0 0.2-1.0 mg/dL Aspartate Amino Transferase (AST) 30 13-40 U/L Alanine Aminotransferase (ALT) 12 7-40 U/L Alkaline Phosphatase 102 46-116 U/L Total Protein 6.2 5.7-8.2 g/dL Albumin 3.3 3.2-4.8 g/dL Hemoglobin A1c 5.5 <5.7 % A1C Triglycerides Level 110 < 150 mg/dL Cholesterol Level 93 < 200 mg/dL LDL Cholesterol 41 < 100 mg/dL HDL Cholesterol 24 L 40-59 mg/dL Thyroid Stimulating Hormone (TSH) 1.22 0.55-4.78 uIU/mL Microbiology Date/Time Source Procedure Growth Status 05/04/24 13:59 Blood Blood Culture - Preliminary NO GROWTH AFTER 24 HOURS OF INCUBATION. Resulted Assessment Impression: Acute hypoxic respiratory failure Lung cancer with metastasis Acute kidney injury Generalized weakness. Hypokalemia Pleural effusion Atelectasis. Hemoptysis Plan: Supplemental oxygen PRN Titrate to keep O2 sats above 92%. Continue antibiotics F/u cultures Continue bronchodilators. Incentive spirometry Follow up Oncology recs. Diurese w/ Lasix as tolerated Monitor renal function. Monitor electrolytes. Supplement as necessary. Monitor ins and outs. On anticoagulation w/ warfarin. Hemoptysis likely capillary burst. DVT prophylaxis. Prognosis: Poor given patient's multiple co-morbidities. Rest of plan per hospitalist and other consultants. Thank you Nelson Pelaez DNP, for allowing me to participate in this patient's care. Further recommendations will depend on the patient's clinical course. Please do not hesitate to contact me if you have any questions or concerns. This medical document was created using an electronic medical record system with [employer] dictation system. Although these documentations are being carefully reviewed, there may still be some phonetic and typographical changes. The errors are purely typographical, due to imperfection on the software program, and do not reflect any compromise in the patient's medical care. Plan discussed with: Patient, Other (RN, PATRICK Pelaez MD) SVETA BROOKS MD May 05, 2024 20:54
[2024-05-06] VITALS (8 sets, daily range): BP systolic 103–127; BP diastolic 68–82; PULSE 82–104; RESP 15–20; TEMP 97.4–99.8; O2SAT 93–98
--- NOTE | 2024-05-06 01:22 | DVHPN2 ---
Progress Note - Dictate Date Seen: May 05, 2024 Medical Necessity Reason Pt with a Central, PICC or Fol: Yes The following are medically ne: Saeed Catheter Subjective Patient seen and examined at bedside. Breathing comfortably on room air. Overnight events reviewed. vital signs Vital Sign Date Time Temp Pulse Resp B/P (MAP) Pulse Ox O2 Delivery O2 Flow Rate FiO2 05/05/24 22:29 91 115/62 05/05/24 21:00 98.8 18 94 98.8 05/05/24 20:00 Room Air* 0 21 Total Intake and Output 05/05/24 05/05/24 05/06/24 15:00 23:00 07:00 Intake Total 100 ml 1060 ml Output Total 1800 ml Balance 100 ml -740 ml medications Current Medications Medications Dose Ordered Sig/Goyo Route Start Time Stop Time Status Last Admin Dose Admin Carvedilol 3.125 mg Q12HR PO 05/03/24 10:00 05/05/24 21:29 3.125 MG Warfarin Sodium RX PROTOCOL PER PHARMACY PO 05/03/24 06:30 Sodium Chloride 10 ml Q8HR IV 05/03/24 14:00 05/05/24 21:29 10 ML Acetaminophen/ Hydrocodone Bitart 1 tab Q4HP PRN PO 05/03/24 06:30 Ondansetron HCl 4 mg Q4HP PRN IV 05/03/24 06:30 Docusate Sodium 100 mg BIDPRN PRN PO 05/03/24 06:30 Acetaminophen 650 mg Q6HP PRN PO 05/03/24 06:30 Nitroglycerin 0.4 mg Q5MINP PRN SL 05/03/24 07:30 Morphine Sulfate 2 mg Q30M PRN IV 05/03/24 07:30 Hold Piperacillin Sod/ Tazobactam Sod 100 ml @ 25 mls/hr Q8H IV 05/05/24 09:00 05/06/24 00:56 25 MLS/HR Furosemide 20 mg BIDD IV 05/05/24 18:00 Potassium Bicarbonate 50 meq DAILY PO 05/06/24 10:00 objective Gen.: Patient lying in bed in no apparent distress. Breathing on room air. Head: Normocephalic, atraumatic. Eyes: EOMI/PERRLA. Ears: Normal hearing. Normal anatomy. Neck/trachea: Trachea midline, supple. Nose: Normal external anatomy. Mouth: Moist mucous membranes. Chest: Decreased air entry bilaterally. No wheezing or rhonchi. Cardiovascular: Positive S1, positive S2. Regular rate and rhythm. Abdomen: Positive bowel sounds in all 4 quadrants. Soft, non-tender, non- distended. : Deferred. Rectal: Deferred. Skin: Warm, dry. Intact. Extremities: 2+ radial pulses bilaterally. No lower extremity edema. Neuro: Awake, alert, oriented x3. No gross motor or sensory deficits. Cranial nerves II through XII intact. Gait not assessed. laboratory and microbiology Laboratory Tests 05/05/24 11:00 Test 05/05/24 11:00 Range/Units Serum Glucose 112 H 74-106 mg/dL Assessment/Plan Impression: Acute hypoxic respiratory failure Lung cancer with metastasis Acute kidney injury Generalized weakness. Hypokalemia Pleural effusion Atelectasis. Events: Breathing on room air No respiratory distress. Continue bronchodilators Continue antibiotics Incentive spirometry Hematology/Oncology recs appreciated. Continue diuresis. Monitor renal function Monitor electrolytes - supplement as necessary. Labs and imaging reviewed. Rest of plan as noted below. Plan: Supplemental oxygen PRN Titrate to keep O2 sats above 92%. Continue antibiotics F/u cultures Continue bronchodilators. Incentive spirometry Follow up Oncology recs. Diurese w/ Lasix as tolerated Monitor renal function. Monitor electrolytes. Supplement as necessary. Monitor ins and outs. On anticoagulation w/ warfarin. DVT prophylaxis. Prognosis: Poor given patient's multiple co-morbidities. Rest of plan per hospitalist and other consultants. Thank you Nelson Pelaez DNP, for allowing me to participate in this patient's care. Further recommendations will depend on the patient's clinical course. Please do not hesitate to contact me if you have any questions or concerns. This medical document was created using an electronic medical record system with [employer] dictation system. Although these documentations are being carefully reviewed, there may still be some phonetic and typographical changes. The errors are purely typographical, due to imperfection on the software program, and do not reflect any compromise in the patient's medical care. Plan discussed with: Patient, Other (RN) SVETA BROOKS MD May 06, 2024 01:22
[2024-05-06 06:52] LABS: INR 2.05 (0.9-1.15); Prothrombin Time 20.6 sec (9.3-11.8)
[2024-05-06 06:55] LABS: Anion Gap 10 (5-15); Carbon Dioxide 26 mmol/L (20-31); Chloride 105 mmol/L (98-107); Sodium 141 mmol/L (136-145)
[2024-05-06 07:01] LABS: BUN/Creatinine Ratio 33.3 (10.0-20.0); Glucose 89 mg/dL (74-106)
[2024-05-06 07:02] LABS: Blood Urea Nitrogen 28 mg/dL (9-23); Calcium 8.6 mg/dL (8.7-10.4)
[2024-05-06] MEDS: POTASSIUM EFFERVESENT TAB 25 MEQ PO SCH (09:44)
--- NOTE | 2024-05-06 11:49 | DVHPN2 ---
Reviewed: Care Plan, H&P, Labs, Medications, Previous Orders, Radiology Changes from previous H/P or p: No Changes Eyes: No Pain, No Vision change, No Conjunctivae inflammation, No Eyelid inflammation, No Other, No Redness ENT: No Ear pain, No Ear discharge, No Nose pain, No Nose discharge, No Nose congestion, No Mouth pain, No Mouth swelling, No Throat pain, No Throat swelling, No Other Cardiovascular: Chest Pain; No Palpitations, No Orthopnea, No Paroxysmal Noc. Dyspnea, No Edema, No Lt Headedness, No Other Respiratory: No Cough, No Dry; Shortness of breath; No SOB with excertion, No Wheezing, No Hemoptysis, No Pleuritic Pain, No Sputum; Other (SOB at rest) Gastrointestinal: No Nausea, No Vomiting, No Abdominal Pain, No Diarrhea, No Constipation, No Melena, No Hematochezia, No Other Genitourinary: No Dysuria, No Frequency, No Incontinence, No Hematuria, No Retention, No Other Musculoskeletal: No other, No neck pain, No shoulder pain, No arm pain, No back pain, No hand pain, No leg pain, No foot pain Skin: No Rash, No Lesions, No Jaundice, No Bruising, No Other Objective Vitals Vital Signs Date Time Temp Pulse Resp B/P (MAP) Pulse Ox O2 Delivery O2 Flow Rate FiO2 05/06/24 08:57 97.4 96 17 119/77 (91) 96 97.4 05/06/24 08:00 Room Air* 0 21 Intake/Output Intake and Output 05/06/24 07:00 Intake Total 1760 ml Output Total 3800 ml Balance -2040 ml Intake Oral 1460 ml IV Total 300 ml Output Urine Total 3800 ml Medications Current Medications Medications Dose Ordered Sig/Goyo Route Start Time Stop Time Status Last Admin Dose Admin Carvedilol 3.125 mg Q12HR PO 05/03/24 10:00 05/05/24 21:29 3.125 MG Warfarin Sodium RX PROTOCOL PER PHARMACY PO 05/03/24 06:30 Sodium Chloride 10 ml Q8HR IV 05/03/24 14:00 05/06/24 05:13 10 ML Acetaminophen/ Hydrocodone Bitart 1 tab Q4HP PRN PO 05/03/24 06:30 Ondansetron HCl 4 mg Q4HP PRN IV 05/03/24 06:30 Docusate Sodium 100 mg BIDPRN PRN PO 05/03/24 06:30 Acetaminophen 650 mg Q6HP PRN PO 05/03/24 06:30 Nitroglycerin 0.4 mg Q5MINP PRN SL 05/03/24 07:30 Morphine Sulfate 2 mg Q30M PRN IV 05/03/24 07:30 Hold Piperacillin Sod/ Tazobactam Sod 100 ml @ 25 mls/hr Q8H IV 05/05/24 09:00 05/06/24 09:44 25 MLS/HR Furosemide 20 mg BIDD IV 05/05/24 18:00 Potassium Bicarbonate 50 meq DAILY PO 05/06/24 10:00 05/06/24 09:44 50 MEQ Laboratory Results Laboratory Tests 05/05/24 11:00 05/06/24 04:54 Chemistry Test 05/06/24 04:54 Calcium Level 8.6 mg/dL (8.7-10.4) L Coagulation Test 05/06/24 04:54 Prothrombin Time 20.6 sec (9.3-11.8) H Prothrombin Time INR 2.05 (0.9-1.15) H Microbiology Microbiology Date/Time Source Procedure Growth Status 05/04/24 13:59 Blood Blood Culture - Preliminary NO GROWTH AFTER 24 HOURS OF INCUBATION. Resulted Labs and/or images reviewed: Labs reviewed by me, Image(s) reviewed by me Assessment/Plan Assessment/Plan Acute generalized weakness Acute hypokalemia potassium 2.9: Replace potassium Acute kidney injury with BUN creatinine 46 and 2.107 Nephrology consult appreciated Hypertension History of kidney stones 1.7 cm right kidney stone: Consult for Urology , advised TURP, we will consult Dr. Irvin per patient's preference Acute Bilateral lower lobe pneumonia: Zosyn History of prostatic cancer diagnosed Jul 2023 at [facility] with extensive Mets to the chest abdomen pelvis status post radiation therapy to the pelvic mets; oncology consult by Dr. Teran appreciated, patient requesting consult by Dr. Hall History of DVT bilateral lower extremities on Coumadin Ascending aortic aneurysm 4.4 cm Pulmonary hypertension Bilateral hydronephrosis secondary to obstructive uropathy: Consult for Dr. Albaro Yeager on Coumadin Time spent 55 minutes Patient is full code MATHEW [phone] Christel, [place] Advanced care planning time 20 minutes Patient came from [facility] Plan discussed with: Patient Date of Service: May 06, 2024 Billing Provider: MARELY HANNA MD Common Visit Codes: [id number] INP/OBS CARE(HIGH) MARELY HANNA MD May 06, 2024 11:49
--- NOTE | 2024-05-06 14:26 | DVHPN2 ---
Progress Note Date Seen: May 06, 2024 Medical Necessity Reason Pt with a Central, PICC or Fol: Yes The following are medically ne: Queen Catheter Subjective Patient reports: Feels better Objective vital signs Vital Sign Date Time Temp Pulse Resp B/P (MAP) Pulse Ox O2 Delivery O2 Flow Rate FiO2 05/06/24 13:00 97.6 94 19 127/82 (97) 98 97.6 05/06/24 08:00 Room Air* 0 21 Total Intake and Output 05/05/24 05/05/24 05/06/24 15:00 23:00 07:00 Intake Total 100 ml 1060 ml 600 ml Output Total 1800 ml 2000 ml Balance 100 ml -740 ml -1400 ml medications Current Medications Medications Dose Ordered Sig/Goyo Route Start Time Stop Time Status Last Admin Dose Admin Carvedilol 3.125 mg Q12HR PO 05/03/24 10:00 05/05/24 21:29 3.125 MG Warfarin Sodium RX PROTOCOL PER PHARMACY PO 05/03/24 06:30 Sodium Chloride 10 ml Q8HR IV 05/03/24 14:00 05/06/24 13:54 10 ML Acetaminophen/ Hydrocodone Bitart 1 tab Q4HP PRN PO 05/03/24 06:30 Ondansetron HCl 4 mg Q4HP PRN IV 05/03/24 06:30 Docusate Sodium 100 mg BIDPRN PRN PO 05/03/24 06:30 Acetaminophen 650 mg Q6HP PRN PO 05/03/24 06:30 Nitroglycerin 0.4 mg Q5MINP PRN SL 05/03/24 07:30 Morphine Sulfate 2 mg Q30M PRN IV 05/03/24 07:30 Hold Piperacillin Sod/ Tazobactam Sod 100 ml @ 25 mls/hr Q8H IV 05/05/24 09:00 05/06/24 09:44 25 MLS/HR Furosemide 20 mg BIDD IV 05/05/24 18:00 Potassium Bicarbonate 50 meq DAILY PO 05/06/24 10:00 05/06/24 09:44 50 MEQ Examination: GENERAL:Abnormal, HEENT:Abnormal, LUNGS:Abnormal, CVS:Abnormal, ABDOMEN:Abnormal laboratory and microbiology Laboratory Tests 05/06/24 04:54 05/05/24 11:00 Test 05/06/24 04:54 Range/Units Serum Glucose 89 74-106 mg/dL Microbiology Date/Time Source Procedure Growth Status 05/04/24 13:59 Blood Blood Culture - Preliminary NO GROWTH AFTER 48 HOURS OF INCUBATION. Resulted Problem List/Assessment/Plan Problem List/Assessment/Plan prostate cancer with bony mets Right heart failure chronic afib , did poorly with doac, on coumadin hx of dvt ascending aneurysm 4.4 cm--no intervention, serial outpt imaging as indicated rate controlled cont his coumadin good UOP with queen poor/ guarded prognosis Plan discussed with: Patient Date of Service: May 06, 2024 Billing Provider: RANGEL SMITH MD Common Visit Codes: NOT BILLABLE RANGEL SMITH MD May 06, 2024 14:26
--- NOTE | 2024-05-06 14:26 | DVHPN2 ---
Progress Note - Dictate Date Seen: May 06, 2024 Medical Necessity Reason Pt with a Central, PICC or Fol: Yes The following are medically ne: Saeed Catheter vital signs Vital Sign Date Time Temp Pulse Resp B/P (MAP) Pulse Ox O2 Delivery O2 Flow Rate FiO2 05/06/24 13:00 97.6 94 19 127/82 (97) 98 97.6 05/06/24 08:00 Room Air* 0 21 Total Intake and Output 05/05/24 05/05/24 05/06/24 15:00 23:00 07:00 Intake Total 100 ml 1060 ml 600 ml Output Total 1800 ml 2000 ml Balance 100 ml -740 ml -1400 ml medications Current Medications Medications Dose Ordered Sig/Goyo Route Start Time Stop Time Status Last Admin Dose Admin Carvedilol 3.125 mg Q12HR PO 05/03/24 10:00 05/05/24 21:29 3.125 MG Warfarin Sodium RX PROTOCOL PER PHARMACY PO 05/03/24 06:30 Sodium Chloride 10 ml Q8HR IV 05/03/24 14:00 05/06/24 13:54 10 ML Acetaminophen/ Hydrocodone Bitart 1 tab Q4HP PRN PO 05/03/24 06:30 Ondansetron HCl 4 mg Q4HP PRN IV 05/03/24 06:30 Docusate Sodium 100 mg BIDPRN PRN PO 05/03/24 06:30 Acetaminophen 650 mg Q6HP PRN PO 05/03/24 06:30 Nitroglycerin 0.4 mg Q5MINP PRN SL 05/03/24 07:30 Morphine Sulfate 2 mg Q30M PRN IV 05/03/24 07:30 Hold Piperacillin Sod/ Tazobactam Sod 100 ml @ 25 mls/hr Q8H IV 05/05/24 09:00 05/06/24 09:44 25 MLS/HR Furosemide 20 mg BIDD IV 05/05/24 18:00 Potassium Bicarbonate 50 meq DAILY PO 05/06/24 10:00 05/06/24 09:44 50 MEQ laboratory and microbiology Laboratory Tests 05/06/24 04:54 05/05/24 11:00 Test 05/06/24 04:54 Range/Units Serum Glucose 89 74-106 mg/dL Assessment/Plan Acute kidney injury---baseline creatinine 0.8---obstructive etiology +hypotension Hypokalemia sec to prostate cancer therapy Prostate cancer with bony metastasis Atrial fibrillation on warfarin Nephrolithiasis right Right hydronephrosis MARIA EUGENIA has resolved lasix re convert to po potassium replacement today rec urine urineK/cr ratio Urine electrolytes as ordered, Kidney ultrasound --noted kidney stone and moderate right hydronephrosis Urology evaluation //Saeed catheter now Plan discussed with: Patient ALEISHA LUNA MD May 06, 2024 14:26
--- NOTE | 2024-05-06 15:44 | DVH ---
EXAM: US LT UPPER DVT Clinical History: WRIST SWELLING Comparison: None Technique: Duplex Doppler evaluation of the deep venous systems of the left upper extremity from the internal ju gular to the ulnar vein including color Doppler and spectral/pulsed waveform analysis was performed. Findings: Normal compressibility and color Doppler flow is seen in the left upper extremity veins including the internal jugular, subclavian, axillary, brachial, radial and ulnar veins. Incompressibility of the left superficial cephalic vein. Impression: 1. No sonographic evidence for left upper extremity DVT. 2. Superficial venous thrombus in the left cephalic vein.
[2024-05-06] MEDS: WARFARIN SODIUM 5 MG TAB PO ONE (17:44)
--- NOTE | 2024-05-06 20:43 | DVHPN2 ---
Progress Note - Dictate Date Seen: May 06, 2024 Medical Necessity Reason Pt with a Central, PICC or Fol: Yes The following are medically ne: Queen Catheter Reason for queen catheter: Strict I&O Subjective Patient seen and examined at bedside. Breathing comfortably on room air. Overnight events reviewed. vital signs Vital Sign Date Time Temp Pulse Resp B/P (MAP) Pulse Ox O2 Delivery O2 Flow Rate FiO2 05/06/24 20:00 15 95 Room Air* 0 21 05/06/24 17:45 119/79 05/06/24 17:00 99.8 94 99.8 Total Intake and Output 05/05/24 05/05/24 05/06/24 15:00 23:00 07:00 Intake Total 100 ml 1060 ml 600 ml Output Total 1800 ml 2000 ml Balance 100 ml -740 ml -1400 ml medications Current Medications Medications Dose Ordered Sig/Goyo Route Start Time Stop Time Status Last Admin Dose Admin Carvedilol 3.125 mg Q12HR PO 05/03/24 10:00 05/05/24 21:29 3.125 MG Warfarin Sodium RX PROTOCOL PER PHARMACY PO 05/03/24 06:30 Sodium Chloride 10 ml Q8HR IV 05/03/24 14:00 05/06/24 13:54 10 ML Acetaminophen/ Hydrocodone Bitart 1 tab Q4HP PRN PO 05/03/24 06:30 Ondansetron HCl 4 mg Q4HP PRN IV 05/03/24 06:30 Docusate Sodium 100 mg BIDPRN PRN PO 05/03/24 06:30 Acetaminophen 650 mg Q6HP PRN PO 05/03/24 06:30 Nitroglycerin 0.4 mg Q5MINP PRN SL 05/03/24 07:30 Morphine Sulfate 2 mg Q30M PRN IV 05/03/24 07:30 Hold Piperacillin Sod/ Tazobactam Sod 100 ml @ 25 mls/hr Q8H IV 05/05/24 09:00 05/06/24 17:44 25 MLS/HR Furosemide 20 mg BIDD IV 05/05/24 18:00 05/06/24 17:45 20 MG Potassium Bicarbonate 50 meq DAILY PO 05/06/24 10:00 05/06/24 09:44 50 MEQ objective Gen.: Patient lying in bed in no apparent distress. Breathing on room air. Head: Normocephalic, atraumatic. Eyes: EOMI/PERRLA. Ears: Normal hearing. Normal anatomy. Neck/trachea: Trachea midline, supple. Nose: Normal external anatomy. Mouth: Moist mucous membranes. Chest: Decreased air entry bilaterally. No wheezing or rhonchi. Cardiovascular: Positive S1, positive S2. Regular rate and rhythm. Abdomen: Positive bowel sounds in all 4 quadrants. Soft, non-tender, non- distended. : Deferred. Rectal: Deferred. Skin: Warm, dry. Intact. Extremities: 2+ radial pulses bilaterally. No lower extremity edema. Neuro: Awake, alert, oriented x3. No gross motor or sensory deficits. Cranial nerves II through XII intact. Gait not assessed. laboratory and microbiology Laboratory Tests 05/06/24 04:54 05/05/24 11:00 Test 05/06/24 04:54 Range/Units Serum Glucose 89 74-106 mg/dL Assessment/Plan Impression: Acute hypoxic respiratory failure Lung cancer with metastasis Acute kidney injury Generalized weakness. Hypokalemia Pleural effusion Atelectasis. Hemoptysis Events: Breathing on room air No respiratory distress. Quantify hemoptysis Thought to be likely capillary burst Patient is on Coumadin, also has pneumonia. Continue bronchodilators Continue antibiotics Incentive spirometry Continue diuresis. Monitor renal function Monitor electrolytes - supplement as necessary. Labs and imaging reviewed. Rest of plan as noted below. Plan: Supplemental oxygen PRN Titrate to keep O2 sats above 92%. Continue antibiotics F/u cultures Continue bronchodilators. Incentive spirometry Oncology recs appreciated. Diurese w/ Lasix as tolerated Monitor renal function. Monitor electrolytes. Supplement as necessary. Monitor ins and outs. On anticoagulation w/ warfarin. Hemoptysis likely capillary burst. DVT prophylaxis. Prognosis: Poor given patient's multiple co-morbidities. Rest of plan per hospitalist and other consultants. Thank you Nelson Pelaez DNP, for allowing me to participate in this patient's care. Further recommendations will depend on the patient's clinical course. Please do not hesitate to contact me if you have any questions or concerns. This medical document was created using an electronic medical record system with [employer] system. Although these documentations are being carefully reviewed, there may still be some phonetic and typographical changes. The errors are purely typographical, due to imperfection on the software program, and do not reflect any compromise in the patient's medical care. Plan discussed with: Patient, Other (DEBBIE So) SVETA BROOKS MD May 06, 2024 20:43
--- NOTE | 2024-05-06 23:20 | DVHINCON2 ---
Date of service: May 06, 2024 Referring Physician Hospitalist Reason for Consultation Urinary retention Metastatic prostate cancer right renal stone, chronic History of Present Illness Patient with urinary retention has history of "Allan 8 and 9 adenocarcinoma prostate diagnosed 12/01/23" with extensive metastasis and PSA of 3000. He underwent radiation therapy and remains on Eligard injections (ADT). CT Scan confirms 1 cm right renal stone. Patient states he has had it for 30 years and it is not bothersome. Dr. Perales saw patient over the weekend and anticipates possible TURP for the patient. Mr. Briscoe, however, does not want any surgery until he speaks with his PCP. He is alright to go home with Saeed to leg bag. Repeat PSA has been ordered. Past Medical History AFIB, lung cancer? Past Surgical History Prostate biopsy Family History: Patient reports no known family medical history. Allergies: Coded Allergies: Morphine (Verified Allergy, Severe, 05/03/24) Home Meds Reported Medications Losartan Potassium (Losartan Potassium) 25 Mg Tab, 1 TAB PO DAILY, #90 TAB 1 Refill 05/03/24 Warfarin Sodium (Warfarin Sodium) 5 Mg Tab, TAB PO 05/03/24 Gabapentin (Gabapentin) 600 Mg Tab, 1 TAB PO TID 05/03/24 Carvedilol (Carvedilol) 3.125 Mg Tab, 1 TAB PO BID 05/03/24 Prednisone (Prednisone) 5 Mg Tab, 1 TAB PO DAILY 05/03/24 Docusate Sodium (Docusate Sodium) 100 Mg Cap, 1 CAP PO BID 05/03/24 Current Medications Current Medications Medications (Trade) Dose Ordered Sig/Goyo Route PRN Reason Start Time Stop Time Status Last Admin Potassium Bicarbonate (Klor-Con/Ef) 50 meq DAILY PO 05/06/24 10:00 05/06/24 09:44 Review of Systems Constitutional: Yes: Weakness, Other (Fatigue); No: Fever, Chills, Sweats, Malaise Eyes: No: Pain, Vision change, Conjunctivae inflammation, Eyelid inflammation, Other, Redness ENT: No: Ear pain, Ear discharge, Nose pain, Nose discharge, Nose congestion, Mouth pain, Mouth swelling, Throat pain, Throat swelling, Other Respiratory: Shortness of breath, Other (SOB at rest); No: Cough, Dry, SOB with excertion, Wheezing, Hemoptysis, Pleuritic Pain, Sputum, Wheezing Cardiovascular: Chest Pain; No: Palpitations, Orthopnea, Paroxysmal Noc. Dyspnea, Edema, Lt Headedness, Other Gastrointestinal: No: Nausea, Vomiting, Abdominal Pain, Diarrhea, Constipation, Melena, Hematochezia, Other Genitourinary: No Dysuria, No Frequency, No Incontinence, No Hematuria, No Retention, No Other Musculoskeletal: No: other, neck pain, shoulder pain, arm pain, back pain, hand pain, leg pain, foot pain Skin: No: Rash, Lesions, Jaundice, Bruising, Other Neurological: No: Weakness, Numbness, Incoordination, Change in speech, Confusion, Seizures, Other Medications Current Medications Medications Dose Ordered Sig/Goyo Route Start Time Stop Time Status Last Admin Dose Admin Carvedilol 3.125 mg Q12HR PO 05/03/24 10:00 UNV Warfarin Sodium RX PROTOCOL PER PHARMACY PO 05/03/24 06:30 UNV Sodium Chloride 10 ml Q8HR IV 05/03/24 14:00 UNV Acetaminophen/ Hydrocodone Bitart 1 tab Q4HP PRN PO 05/03/24 06:30 UNV Ondansetron HCl 4 mg Q4HP PRN IV 05/03/24 06:30 UNV Docusate Sodium 100 mg BIDPRN PRN PO 05/03/24 06:30 UNV Acetaminophen 650 mg Q6HP PRN PO 05/03/24 06:30 UNV Vital Signs Vital Signs Date Time Temp Pulse Resp B/P (MAP) Pulse Ox O2 Delivery O2 Flow Rate FiO2 05/06/24 21:00 98.5 103 17 118/71 (87) 93 98.5 05/06/24 20:00 Room Air* 0 21 Physical Exam Saeed in place. Urine clear Labs/Diagnostic Data Labs Test 05/06/24 04:54 05/05/24 11:00 05/04/24 06:40 05/03/24 06:41 Range/Units Prothrombin Time 20.6 H 9.3-11.8 sec Prothrombin Time INR 2.05 H 0.9-1.15 Sodium Level 141 136-145 mmol/L Potassium Level 3.0 L 3.5-5.1 mmol/L Chloride Level 105 98-107 mmol/L Carbon Dioxide Level 26 20-31 mmol/L Anion Gap 10 5-15 Blood Urea Nitrogen 28 H 9-23 mg/dL Creatinine 0.84 0.700-1.30 mg/dL Glomerular Filtration Rate Calc 95 >90 mL/min BUN/Creatinine Ratio 33.3 H 10.0-20.0 Serum Glucose 89 74-106 mg/dL Calcium Level 8.6 L 8.7-10.4 mg/dL White Blood Count 7.6 4.4-10.8 10^3/uL Red Blood Count 3.68 L 4.5-5.90 10^6/uL Hemoglobin 12.1 L 13.5-17.5 g/dL Hematocrit 35.8 #L 41.0-53.0 % Mean Corpuscular Volume 97.3 80.0-100.0 fL Mean Corpuscular Hemoglobin 32.9 H 28.0-32.0 pg Mean Corpuscular Hemoglobin Concent 33.9 32.0-36.0 g/dL Red Cell Distribution Width 16.0 H 11.8-14.3 % Platelet Count 184 140-450 10^3/uL Mean Platelet Volume 7.3 6.9-10.8 fL Neutrophils (%) (Auto) 86.9 H 37.0-80.0 % Lymphocytes (%) (Auto) 2.9 L 10.0-50.0 % Monocytes (%) (Auto) 8.5 0.0-12.0 % Eosinophils (%) (Auto) 1.5 0.0-7.0 % Basophils (%) (Auto) 0.2 0.0-2.0 % Neutrophils # (Auto) 6.6 1.6-8.6 10 ^3/uL Lymphocytes # (Auto) 0.2 L 0.4-5.4 10 ^3/uL Monocytes # (Auto) 0.6 0-1.3 10 ^3/uL Eosinophils # (Auto) 0.1 0-0.8 10 ^3/uL Basophils # (Auto) 0 0-0.2 10 ^3/uL Nucleated Red Blood Cells 0.0 % Activated Partial Thromboplast Time 36.5 H 24.5-34.5 SEC Phosphorus Level 1.7 L 2.4-5.1 mg/dL Magnesium Level 2.0 1.6-2.6 mg/dL Total Bilirubin 1.0 0.2-1.0 mg/dL Aspartate Amino Transferase (AST) 30 13-40 U/L Alanine Aminotransferase (ALT) 12 7-40 U/L Alkaline Phosphatase 102 46-116 U/L Total Protein 6.2 5.7-8.2 g/dL Albumin 3.3 3.2-4.8 g/dL Hemoglobin A1c 5.5 <5.7 % A1C Triglycerides Level 110 < 150 mg/dL Cholesterol Level 93 < 200 mg/dL LDL Cholesterol 41 < 100 mg/dL HDL Cholesterol 24 L 40-59 mg/dL Thyroid Stimulating Hormone (TSH) 1.22 0.55-4.78 uIU/mL Microbiology Date/Time Source Procedure Growth Status 05/04/24 13:59 Blood Blood Culture - Preliminary NO GROWTH AFTER 48 HOURS OF INCUBATION. Resulted Assessment Urinary retention BPH/prostate cancer Right renal stone Plan/Recommendation Saeed to gravity with monthly changes. If patient agrees to TURP, will proceed Plan discussed with: Patient, Other NAVID COTO MD May 06, 2024 23:19
[2024-05-07] VITALS (8 sets, daily range): BP systolic 106–125; BP diastolic 56–87; PULSE 64–105; RESP 16–20; TEMP 97.6–98.5; O2SAT 95–97
[2024-05-07 03:29] LABS: Urine Bacteria None Seen /hpf (None Seen)
[2024-05-07 04:07] LABS: Urine Blood 2+ /uL (Negative); Urine Clarity Clear (Clear); Urine Color Yellow (Yellow); Urine Protein, UAD 2+ (Negative); Urine Specific Gravity 1.018 (1.001-1.035); Urine Urobilinogen Normal (Negative); Urine WBC 4 /hpf (0 - 3)
[2024-05-07 07:22] LABS: Basophils # (auto) 0 10 ^3/uL (0-0.2); Basophils % (auto) 0.3 % (0.0-2.0); Eosinophils # (auto) 0.1 10 ^3/uL (0-0.8); Eosinophils % (auto) 1.1 % (0.0-7.0); Hematocrit 35.7 % (41.0-53.0); Hemoglobin 12.4 g/dL (13.5-17.5); Lymphocytes # (auto) 0.3 10 ^3/uL (0.4-5.4); Lymphocytes % (auto) 3.8 % (10.0-50.0); Mean Corpuscular Hemoglobin 33.7 pg (28.0-32.0); Mean Corpuscular Hgb Conc. 34.7 g/dL (32.0-36.0); Mean Corpuscular Volume 96.9 fL (80.0-100.0); Monocytes # (auto) 0.8 10 ^3/uL (0-1.3); Monocytes % (auto) 10.2 % (0.0-12.0); Neutrophils # (auto) 6.5 10 ^3/uL (1.6-8.6); Neutrophils % (auto) 84.6 % (37.0-80.0); Platelet Count (auto) 227 10^3/uL (140-450); Red Blood Cells 3.68 10^6/uL (4.5-5.90); Red Cell Distribution Width 15.2 % (11.8-14.3); White Blood Cell 7.6 10^3/uL (4.4-10.8)
[2024-05-07 07:35] LABS: Anion Gap 7 (5-15); Carbon Dioxide 28 mmol/L (20-31); Chloride 104 mmol/L (98-107); Potassium 2.7 mmol/L (3.5-5.1); Sodium 139 mmol/L (136-145)
[2024-05-07 07:41] LABS: BUN/Creatinine Ratio 24.7 (10.0-20.0); Blood Urea Nitrogen 20 mg/dL (9-23); Glucose 101 mg/dL (74-106); INR 2.17 (0.9-1.15); Partial Thromboplastin Time 35.2 SEC (24.5-34.5); Prothrombin Time 21.7 sec (9.3-11.8)
[2024-05-07] MEDS: HYDROcodone-ACET 5/325MG TAB PO PRN (08:44)
--- NOTE | 2024-05-07 09:11 | DVHPN2 ---
Progress Note - Dictate Date Seen: May 06, 2024 Has the PT tested + for MRSA If YES, has PT been informed?: Yes Medical Necessity Reason Pt with a Central, PICC or Fol: Yes The following are medically ne: Queen Catheter Reason for queen catheter: Strict I&O Subjective Patient is feeling okay. His family is by his bedside vital signs Vital Sign Date Time Temp Pulse Resp B/P (MAP) Pulse Ox O2 Delivery O2 Flow Rate FiO2 05/07/24 08:43 82 123/70 05/07/24 08:00 18 95 Room Air* 0 21 05/07/24 05:00 98.5 98.5 Total Intake and Output 05/06/24 05/06/24 05/07/24 14:59 22:59 06:59 Intake Total 1000 ml 800 ml Output Total 950 ml 1300 ml Balance 50 ml -500 ml medications Current Medications Medications Dose Ordered Sig/Goyo Route Start Time Stop Time Status Last Admin Dose Admin Carvedilol 3.125 mg Q12HR PO 05/03/24 10:00 05/07/24 08:43 3.125 MG Warfarin Sodium RX PROTOCOL PER PHARMACY PO 05/03/24 06:30 Sodium Chloride 10 ml Q8HR IV 05/03/24 14:00 05/07/24 05:49 10 ML Acetaminophen/ Hydrocodone Bitart 1 tab Q4HP PRN PO 05/03/24 06:30 05/07/24 08:44 1 TAB Ondansetron HCl 4 mg Q4HP PRN IV 05/03/24 06:30 Docusate Sodium 100 mg BIDPRN PRN PO 05/03/24 06:30 Acetaminophen 650 mg Q6HP PRN PO 05/03/24 06:30 Nitroglycerin 0.4 mg Q5MINP PRN SL 05/03/24 07:30 Morphine Sulfate 2 mg Q30M PRN IV 05/03/24 07:30 Hold Piperacillin Sod/ Tazobactam Sod 100 ml @ 25 mls/hr Q8H IV 05/05/24 09:00 05/07/24 08:43 25 MLS/HR Furosemide 20 mg BIDD IV 05/05/24 18:00 05/07/24 05:48 20 MG Potassium Bicarbonate 50 meq DAILY PO 05/06/24 10:00 05/07/24 08:44 50 MEQ objective Head and neck: Unremarkable for any masses or neck nodes. Lungs: Clear Cardiovascular: Regular sinus rhythm Abdomen: No organomegaly, tenderness or ascites. Bowel sounds are present. Extremities: No clubbing edema cyanosis or calf tenderness. Skin: Unremarkable for petechia purpura ecchymosis Lymphadenopathy: None laboratory and microbiology Laboratory Tests 05/07/24 06:02 Test 05/07/24 06:02 Range/Units Serum Glucose 101 74-106 mg/dL Assessment/Plan 1. Prostate cancer, with known diffuse skeletal metastasis --Diagnosed in July 2023 with a PSA of >3000. --On ADT and abiraterone/prednisone, as well as Xgeva. --Also s/p palliative RT to the left hip from 03/12-04/03 due to development of severe left hip pain. 2. Acute kidney injury 3. Right-sided nehprolithiasis and hydronephrosis --Noted to have a Cr of 2.08 on admission, baseline Cr 0.64. --Hydronephrosis secondary to urinary retention 4. Mild pulmonary edema, possible minor pneumonia. 5. Hypokalemia, potentially secondary to abiraterone 05/05/24: White count 7.6 hemoglobin 12.1 platelets 184 Potassium three BUN 28 creatinine 0.84 Plan: Metastatic prostate carcinoma BPH with urinary retention has a Queen catheter For the metastatic prostate cancer the patient will follow with my office as an outpatient Plan discussed with: Patient, Spouse JAYSON MORALES MD May 07, 2024 09:11
--- NOTE | 2024-05-07 11:31 | DVHPN2 ---
Reviewed: Care Plan, H&P, Labs, Medications, Previous Orders, Radiology Changes from previous H/P or p: No Changes Eyes: No Pain, No Vision change, No Conjunctivae inflammation, No Eyelid inflammation, No Other, No Redness ENT: No Ear pain, No Ear discharge, No Nose pain, No Nose discharge, No Nose congestion, No Mouth pain, No Mouth swelling, No Throat pain, No Throat swelling, No Other Cardiovascular: Chest Pain; No Palpitations, No Orthopnea, No Paroxysmal Noc. Dyspnea, No Edema, No Lt Headedness, No Other Respiratory: No Cough, No Dry; Shortness of breath; No SOB with excertion, No Wheezing, No Hemoptysis, No Pleuritic Pain, No Sputum; Other (SOB at rest) Gastrointestinal: No Nausea, No Vomiting, No Abdominal Pain, No Diarrhea, No Constipation, No Melena, No Hematochezia, No Other Genitourinary: No Dysuria, No Frequency, No Incontinence, No Hematuria, No Retention, No Other Musculoskeletal: No other, No neck pain, No shoulder pain, No arm pain, No back pain, No hand pain, No leg pain, No foot pain Skin: No Rash, No Lesions, No Jaundice, No Bruising, No Other Objective Vitals Vital Signs Date Time Temp Pulse Resp B/P (MAP) Pulse Ox O2 Delivery O2 Flow Rate FiO2 05/07/24 09:00 97.6 69 20 111/71 (84) 96 97.6 05/07/24 08:00 Room Air* 0 21 Intake/Output Intake and Output 05/07/24 07:00 Intake Total 1800 ml Output Total 2250 ml Balance -450 ml Intake Oral 1800 ml Output Urine Total 2250 ml # Bowel Movements 2 Medications Current Medications Medications Dose Ordered Sig/Goyo Route Start Time Stop Time Status Last Admin Dose Admin Carvedilol 3.125 mg Q12HR PO 05/03/24 10:00 05/07/24 08:43 3.125 MG Warfarin Sodium RX PROTOCOL PER PHARMACY PO 05/03/24 06:30 Sodium Chloride 10 ml Q8HR IV 05/03/24 14:00 05/07/24 05:49 10 ML Acetaminophen/ Hydrocodone Bitart 1 tab Q4HP PRN PO 05/03/24 06:30 05/07/24 08:44 1 TAB Ondansetron HCl 4 mg Q4HP PRN IV 05/03/24 06:30 Docusate Sodium 100 mg BIDPRN PRN PO 05/03/24 06:30 Acetaminophen 650 mg Q6HP PRN PO 05/03/24 06:30 Nitroglycerin 0.4 mg Q5MINP PRN SL 05/03/24 07:30 Morphine Sulfate 2 mg Q30M PRN IV 05/03/24 07:30 Hold Piperacillin Sod/ Tazobactam Sod 100 ml @ 25 mls/hr Q8H IV 05/05/24 09:00 05/07/24 08:43 25 MLS/HR Furosemide 20 mg BIDD IV 05/05/24 18:00 05/07/24 05:48 20 MG Potassium Bicarbonate 50 meq DAILY PO 05/06/24 10:00 05/07/24 08:44 50 MEQ Laboratory Results Laboratory Tests 05/07/24 06:02 Chemistry Test 05/07/24 06:02 Calcium Level 9.0 mg/dL (8.7-10.4) Coagulation Test 05/07/24 06:02 Prothrombin Time 21.7 sec (9.3-11.8) H Prothrombin Time INR 2.17 (0.9-1.15) H Activated Partial Thromboplast Time 35.2 SEC (24.5-34.5) H Urinalysis Test 05/07/24 03:00 Urine Color Yellow (Yellow) Urine Clarity Clear (Clear) Urine pH 6.0 (5.0-9.0) Urine Specific [place] 1.018 (1.001-1.035) Urine Protein 2+ (Negative) H Urine Ketones Negative (Negative) Urine Blood 2+ /uL (Negative) H Urine Nitrite Negative (Negative) Urine Bilirubin Negative (Negative) Urine Urobilinogen Normal mg/dL (Negative) Urine Leukocyte Esterase Negative /uL (Negative) Urine RBC 83 /hpf (0 - 3) Urine WBC 4 /hpf (0 - 3) Urine Squamous Epithelial Cells Few /hpf (<5) Urine Bacteria None seen /hpf (None Seen) Urine Glucose Normal mg/dL (Normal) Microbiology Microbiology Date/Time Source Procedure Growth Status 05/04/24 13:59 Blood Blood Culture - Preliminary NO GROWTH AFTER 48 HOURS OF INCUBATION. Resulted Labs and/or images reviewed: Labs reviewed by me, Image(s) reviewed by me Assessment/Plan Assessment/Plan Acute generalized weakness Acute hypokalemia potassium 2.9: Replace potassium Acute kidney injury with BUN creatinine 46 and 2.107 Nephrology consult appreciated Hypertension History of kidney stones 1.7 cm right kidney stone: Consult for Urology , advised TURP Acute Bilateral lower lobe pneumonia: Zosyn History of prostatic cancer diagnosed Jul 2023 at [place] with extensive Mets to the chest abdomen pelvis status post radiation therapy to the pelvic mets; oncology consult by Dr. Teran appreciated, per Dr. Hall he will follow up as an outpatient for his metastatic prostate cancer History of DVT bilateral lower extremities on Coumadin Ascending aortic aneurysm 4.4 cm Pulmonary hypertension Bilateral hydronephrosis secondary to obstructive uropathy: Consult for Dr. Irvin appreciated AFib on Coumadin Time spent 55 minutes Patient is full code MATHEW [phone] Kearney, [place] Advanced care planning time 20 minutes Patient's friend Minh [phone] at bedside Patient came from [facility] Plan discussed with: Patient My Orders Orders - MARELY HANNA MD Procedure Category Date Status Time Urine Bacterial CASSIE 05/06/24 In Process Culture 11:31 * Urology Consult CONS 05/06/24 Transmitted 11:49 * Hematology/Oncology CONS 05/06/24 Transmitted Consult 11:49 Pt Request For Service PT 05/06/24 Logged 11:52 Lt Upper Dvt US 05/06/24 Resulted 13:58 Date of Service: May 07, 2024 Billing Provider: MARELY HANNA MD Common Visit Codes: [id number] INP/OBS CARE(HIGH) MARELY HANNA MD May 07, 2024 11:31
--- NOTE | 2024-05-07 12:17 | DVHPN2 ---
Progress Note - Dictate Date Seen: May 07, 2024 Has the PT tested + for MRSA If YES, has PT been informed?: Yes Medical Necessity Reason Pt with a Central, PICC or Fol: Yes The following are medically ne: Queen Catheter Reason for queen catheter: Strict I&O vital signs Vital Sign Date Time Temp Pulse Resp B/P (MAP) Pulse Ox O2 Delivery O2 Flow Rate FiO2 05/07/24 09:00 97.6 69 20 111/71 (84) 96 97.6 05/07/24 08:00 Room Air* 0 21 Total Intake and Output 05/06/24 05/06/24 05/07/24 15:00 23:00 07:00 Intake Total 1000 ml 800 ml Output Total 950 ml 1300 ml Balance 50 ml -500 ml medications Current Medications Medications Dose Ordered Sig/Goyo Route Start Time Stop Time Status Last Admin Dose Admin Carvedilol 3.125 mg Q12HR PO 05/03/24 10:00 05/07/24 08:43 3.125 MG Warfarin Sodium RX PROTOCOL PER PHARMACY PO 05/03/24 06:30 Sodium Chloride 10 ml Q8HR IV 05/03/24 14:00 05/07/24 05:49 10 ML Acetaminophen/ Hydrocodone Bitart 1 tab Q4HP PRN PO 05/03/24 06:30 05/07/24 08:44 1 TAB Ondansetron HCl 4 mg Q4HP PRN IV 05/03/24 06:30 Docusate Sodium 100 mg BIDPRN PRN PO 05/03/24 06:30 Acetaminophen 650 mg Q6HP PRN PO 05/03/24 06:30 Nitroglycerin 0.4 mg Q5MINP PRN SL 05/03/24 07:30 Morphine Sulfate 2 mg Q30M PRN IV 05/03/24 07:30 Hold Piperacillin Sod/ Tazobactam Sod 100 ml @ 25 mls/hr Q8H IV 05/05/24 09:00 05/07/24 08:43 25 MLS/HR Potassium Bicarbonate 50 meq DAILY PO 05/06/24 10:00 05/07/24 08:44 50 MEQ laboratory and microbiology Laboratory Tests 05/07/24 06:02 Test 05/07/24 06:02 Range/Units Serum Glucose 101 74-106 mg/dL Assessment/Plan Acute kidney injury---baseline creatinine 0.8---obstructive etiology +hypotension Hypokalemia sec to prostate cancer therapy Prostate cancer with bony metastasis Atrial fibrillation on warfarin Nephrolithiasis right Right hydronephrosis MARIA EUGENIA has resolved lasix hold today potassium replacement today rec urine urineK/cr ratio Urine electrolytes as ordered, Kidney ultrasound --noted kidney stone and moderate right hydronephrosis Urology evaluation //Queen catheter now Plan discussed with: Patient ALEISHA LUNA MD May 07, 2024 12:17
[2024-05-07] MEDS: POTASSIUM EFFERVESENT TAB 25 MEQ PO ONE (13:36)
--- NOTE | 2024-05-07 15:21 | DVHDS2 ---
Discharge Summary Date of Admission May 03, 2024 at 07:20 Date of Discharge: May 08, 2024 Admitting Diagnosis Generalized weakness and body pains Wounds: None Labs/Diagnostic Data: Laboratory Results Test 05/07/24 06:02 05/07/24 03:00 05/04/24 06:40 05/03/24 06:41 White Blood Count 7.6 10^3/uL (4.4-10.8) Red Blood Count 3.68 10^6/uL (4.5-5.90) Hemoglobin 12.4 g/dL (13.5-17.5) Hematocrit 35.7 % (41.0-53.0) Mean Corpuscular Volume 96.9 fL (80.0-100.0) Mean Corpuscular Hemoglobin 33.7 pg (28.0-32.0) Mean Corpuscular Hemoglobin Concent 34.7 g/dL (32.0-36.0) Red Cell Distribution Width 15.2 % (11.8-14.3) Platelet Count 227 10^3/uL (140-450) Mean Platelet Volume 7.6 fL (6.9-10.8) Neutrophils (%) (Auto) 84.6 % (37.0-80.0) Lymphocytes (%) (Auto) 3.8 % (10.0-50.0) Monocytes (%) (Auto) 10.2 % (0.0-12.0) Eosinophils (%) (Auto) 1.1 % (0.0-7.0) Basophils (%) (Auto) 0.3 % (0.0-2.0) Neutrophils # (Auto) 6.5 10 ^3/uL (1.6-8.6) Lymphocytes # (Auto) 0.3 10 ^3/uL (0.4-5.4) Monocytes # (Auto) 0.8 10 ^3/uL (0-1.3) Eosinophils # (Auto) 0.1 10 ^3/uL (0-0.8) Basophils # (Auto) 0 10 ^3/uL (0-0.2) Nucleated Red Blood Cells 0.0 % Prothrombin Time 21.7 sec (9.3-11.8) Prothrombin Time INR 2.17 (0.9-1.15) Activated Partial Thromboplast Time 35.2 SEC (24.5-34.5) Sodium Level 139 mmol/L (136-145) Potassium Level 2.7 mmol/L (3.5-5.1) Chloride Level 104 mmol/L (98-107) Carbon Dioxide Level 28 mmol/L (20-31) Anion Gap 7 (5-15) Blood Urea Nitrogen 20 mg/dL (9-23) Creatinine 0.81 mg/dL (0.700-1.30) Glomerular Filtration Rate Calc 96 mL/min (>90) BUN/Creatinine Ratio 24.7 (10.0-20.0) Serum Glucose 101 mg/dL (74-106) Calcium Level 9.0 mg/dL (8.7-10.4) Urine Color Yellow (Yellow) Urine Clarity Clear (Clear) Urine pH 6.0 (5.0-9.0) Urine Specific [place] 1.018 (1.001-1.035) Urine Protein 2+ (Negative) Urine Ketones Negative (Negative) Urine Blood 2+ /uL (Negative) Urine Nitrite Negative (Negative) Urine Bilirubin Negative (Negative) Urine Urobilinogen Normal mg/dL (Negative) Urine Leukocyte Esterase Negative /uL (Negative) Urine RBC 83 /hpf (0 - 3) Urine WBC 4 /hpf (0 - 3) Urine Squamous Epithelial Cells Few /hpf (<5) Urine Bacteria None seen /hpf (None Seen) Urine Glucose Normal mg/dL (Normal) Phosphorus Level 1.7 mg/dL (2.4-5.1) Magnesium Level 2.0 mg/dL (1.6-2.6) Total Bilirubin 1.0 mg/dL (0.2-1.0) Aspartate Amino Transferase (AST) 30 U/L (13-40) Alanine Aminotransferase (ALT) 12 U/L (7-40) Alkaline Phosphatase 102 U/L (46-116) Total Protein 6.2 g/dL (5.7-8.2) Albumin 3.3 g/dL (3.2-4.8) Hemoglobin A1c 5.5 % A1C (<5.7) Triglycerides Level 110 mg/dL (< 150) Cholesterol Level 93 mg/dL (< 200) LDL Cholesterol 41 mg/dL (< 100) HDL Cholesterol 24 mg/dL (40-59) Thyroid Stimulating Hormone (TSH) 1.22 uIU/mL (0.55-4.78) Other Laboratory Tests 05/07/24 06:02 Brief Hx & Hospital Course: Patient with prostate cancer with a extensive skeletal metastasis to chest abdomen pelvis recent radiation therapy left hip for unbearable pain came in complaining of generalized pain nausea and weakness. The patient had a low potassium of 2.9 potassium was replaced patient also had acute kidney injury with elevated BUN creatinine Nephrology was consulted. The patient has history of hypertension kidney stones atrial fibrillation and bilateral lower extremity DVT for which he is on Coumadin also has a ascending aortic aneurysm 4.4 cm and pulmonary hypertension patient has obstructive uropathy and hydronephrosis secondary to enlarged prostate seen by Urology Dr. Irvin and advised TURP but the patient refused. Prostate cancer diagnosed in July 2023 at [place]. Patient lives in [place] and unable to take care of anemia secondary to recurrent falls . being discharged to residential facility for pain management physical therapy and rehab the plan is agreeable to the patient and the . general condition very poor but stable. Prognosis poor Consults/Reason for consult Oncology Dr. Hall Urology Dr. Irvin Operations or Procedures CT head Condition at Discharge: Poor Final Diagnosis/Problems List Acute generalized weakness Acute hypokalemia potassium 2.9: Replace potassium Acute kidney injury with BUN creatinine 46 and 2.107 Nephrology consult appreciated Hypertension History of kidney stones 1.7 cm right kidney stone: Consult for Urology , advised TURP Acute Bilateral lower lobe pneumonia: Zosyn History of prostatic cancer diagnosed Jul 2023 at [place] with extensive Mets to the chest abdomen pelvis status post radiation therapy to the pelvic mets; oncology consult by Dr. Teran appreciated, per Dr. Hall he will follow up as an outpatient for his metastatic prostate cancer History of DVT bilateral lower extremities on Coumadin Ascending aortic aneurysm 4.4 cm Pulmonary hypertension Bilateral hydronephrosis secondary to obstructive uropathy: Consult for Dr. Irvin appreciated AFib DVT bilateral lower extremities on Coumadin Hypokalemia: Replace potassium [facility] Discharge Instruct/Medications Diet: Cardiac 2g Na,low cholest Activity: Light activity Follow Up/Referral: Follow up with the [facility] Medications: Zosyn 3.375 g IV q.8 hours for two weeks for pneumonia 39 (Time taken for discharge summary 39 minutes) Discharge Statement: "Patient was advised to return to the ER or call 911 if any headaches, dizziness, shortness of breath, chest pain, abdominal pain, bleeding, fevers, or worsening of medical condition. Patient was counseled about treatment plan, medications, possible side effects, patientverbalized understanding. All questions were answered to the best of my ability. This discharge took greater then 30 minutes in planning, reviewing documentation, counseling the patient, and discussing with other team members." ASSESSMENT ASSESSMENT Hospital Course Marginal improvement symptomatic Assessment Acute generalized weakness Acute hypokalemia potassium 2.9: Replace potassium Acute kidney injury with BUN creatinine 46 and 2.107 Nephrology consult appreciated Hypertension History of kidney stones 1.7 cm right kidney stone: Consult for Urology , advised TURP Acute Bilateral lower lobe pneumonia: Zosyn History of prostatic cancer diagnosed Jul 2023 at [place] with extensive Mets to the chest abdomen pelvis status post radiation therapy to the pelvic mets; oncology consult by Dr. Teran appreciated, per Dr. Hall he will follow up as an outpatient for his metastatic prostate cancer History of DVT bilateral lower extremities on Coumadin Ascending aortic aneurysm 4.4 cm Pulmonary hypertension Bilateral hydronephrosis secondary to obstructive uropathy: Consult for Dr. Irvin appreciated AFib DVT bilateral lower extremities on Coumadin Hypokalemia: Replace potassium Date of Service: May 07, 2024 Billing Provider: MARELY HANNA MD Common Visit Codes: [id number] DISCH DAY >30min MARELY HANNA MD May 07, 2024 15:21
--- NOTE | 2024-05-07 17:15 | DVHPN2 ---
Progress Note Date Seen: May 07, 2024 Has the PT tested + for MRSA If YES, has PT been informed?: Yes Medical Necessity Reason Pt with a Central, PICC or Fol: Yes The following are medically ne: Queen Catheter Reason for queen catheter: Strict I&O Objective vital signs Vital Sign Date Time Temp Pulse Resp B/P (MAP) Pulse Ox O2 Delivery O2 Flow Rate FiO2 05/07/24 16:43 98.0 64 20 125/80 (95) 95 98.0 05/07/24 08:00 Room Air* 0 21 Total Intake and Output 05/06/24 05/06/24 05/07/24 15:00 23:00 07:00 Intake Total 1000 ml 800 ml Output Total 950 ml 1300 ml Balance 50 ml -500 ml medications Current Medications Medications Dose Ordered Sig/Goyo Route Start Time Stop Time Status Last Admin Dose Admin Carvedilol 3.125 mg Q12HR PO 05/03/24 10:00 05/07/24 08:43 3.125 MG Warfarin Sodium RX PROTOCOL PER PHARMACY PO 05/03/24 06:30 Sodium Chloride 10 ml Q8HR IV 05/03/24 14:00 05/07/24 13:36 10 ML Acetaminophen/ Hydrocodone Bitart 1 tab Q4HP PRN PO 05/03/24 06:30 05/07/24 08:44 1 TAB Ondansetron HCl 4 mg Q4HP PRN IV 05/03/24 06:30 Docusate Sodium 100 mg BIDPRN PRN PO 05/03/24 06:30 Acetaminophen 650 mg Q6HP PRN PO 05/03/24 06:30 Nitroglycerin 0.4 mg Q5MINP PRN SL 05/03/24 07:30 Morphine Sulfate 2 mg Q30M PRN IV 05/03/24 07:30 Hold Piperacillin Sod/ Tazobactam Sod 100 ml @ 25 mls/hr Q8H IV 05/05/24 09:00 05/07/24 17:01 25 MLS/HR Potassium Bicarbonate 50 meq DAILY PO 05/06/24 10:00 05/07/24 08:44 50 MEQ Examination: GENERAL:Abnormal, HEENT:Abnormal, LUNGS:Abnormal, CVS:Abnormal, ABDOMEN:Normal, ABDOMEN:Abnormal laboratory and microbiology Laboratory Tests 05/07/24 06:02 Test 05/07/24 06:02 Range/Units Serum Glucose 101 74-106 mg/dL Microbiology Date/Time Source Procedure Growth Status 05/04/24 13:59 Blood Blood Culture - Preliminary NO GROWTH AFTER 72 HOURS OF INCUBATION. Resulted Problem List/Assessment/Plan Problem List/Assessment/Plan prostate cancer with bony mets Right heart failure chronic afib , did poorly with doac, on coumadin hx of dvt ascending aneurysm 4.4 cm--no intervention, serial outpt imaging as indicated rate controlled cont his coumadin good UOP with queen poor/ guarded prognosis Plan discussed with: Patient Dietary Evaluation Review Comments: encourage PO intakes, offer Ensure EnLive BID, consider liberized his diet to Regular, as his cholesterol and LDL are both at low levels Expected Outcomes/Goals: Maintain Boday weight. Improved strength. Date of Service: May 07, 2024 Billing Provider: RANGEL SMITH MD Common Visit Codes: NOT BILLABLE RANGEL SMITH MD May 07, 2024 17:15
[2024-05-07] MEDS: WARFARIN SODIUM 5 MG TAB PO ONE (18:17)
--- NOTE | 2024-05-07 21:20 | DVHPN2 ---
Progress Note - Dictate Date Seen: May 07, 2024 Has the PT tested + for MRSA If YES, has PT been informed?: Yes Medical Necessity Reason Pt with a Central, PICC or Fol: Yes The following are medically ne: Queen Catheter Reason for queen catheter: Strict I&O Subjective Patient seen and examined at bedside. Breathing comfortably on room air. Overnight events reviewed. vital signs Vital Sign Date Time Temp Pulse Resp B/P (MAP) Pulse Ox O2 Delivery O2 Flow Rate FiO2 05/07/24 21:00 98.3 100 16 107/56 (73) 95 98.3 05/07/24 08:00 Room Air* 0 21 Total Intake and Output 05/06/24 05/06/24 05/07/24 15:00 23:00 07:00 Intake Total 1000 ml 800 ml Output Total 950 ml 1300 ml Balance 50 ml -500 ml medications Current Medications Medications Dose Ordered Sig/Goyo Route Start Time Stop Time Status Last Admin Dose Admin Carvedilol 3.125 mg Q12HR PO 05/03/24 10:00 05/07/24 08:43 3.125 MG Warfarin Sodium RX PROTOCOL PER PHARMACY PO 05/03/24 06:30 Sodium Chloride 10 ml Q8HR IV 05/03/24 14:00 05/07/24 13:36 10 ML Acetaminophen/ Hydrocodone Bitart 1 tab Q4HP PRN PO 05/03/24 06:30 05/07/24 18:21 1 TAB Ondansetron HCl 4 mg Q4HP PRN IV 05/03/24 06:30 Docusate Sodium 100 mg BIDPRN PRN PO 05/03/24 06:30 Acetaminophen 650 mg Q6HP PRN PO 05/03/24 06:30 Nitroglycerin 0.4 mg Q5MINP PRN SL 05/03/24 07:30 Morphine Sulfate 2 mg Q30M PRN IV 05/03/24 07:30 Hold Piperacillin Sod/ Tazobactam Sod 100 ml @ 25 mls/hr Q8H IV 05/05/24 09:00 05/07/24 17:01 25 MLS/HR Potassium Bicarbonate 50 meq DAILY PO 05/06/24 10:00 05/07/24 08:44 50 MEQ objective Gen.: Patient lying in bed in no apparent distress. Breathing on room air. Head: Normocephalic, atraumatic. Eyes: EOMI/PERRLA. Ears: Normal hearing. Normal anatomy. Neck/trachea: Trachea midline, supple. Nose: Normal external anatomy. Mouth: Moist mucous membranes. Chest: Decreased air entry bilaterally. No wheezing or rhonchi. Cardiovascular: Positive S1, positive S2. Regular rate and rhythm. Abdomen: Positive bowel sounds in all 4 quadrants. Soft, non-tender, non- distended. : Deferred. Rectal: Deferred. Skin: Warm, dry. Intact. Extremities: 2+ radial pulses bilaterally. No lower extremity edema. Neuro: Awake, alert, oriented x3. No gross motor or sensory deficits. Cranial nerves II through XII intact. Gait not assessed. laboratory and microbiology Laboratory Tests 05/07/24 06:02 Test 05/07/24 06:02 Range/Units Serum Glucose 101 74-106 mg/dL Assessment/Plan Impression: Acute hypoxic respiratory failure Lung cancer with metastasis Acute kidney injury Generalized weakness. Hypokalemia Pleural effusion Atelectasis. Hemoptysis Events: Breathing on room air No respiratory distress. Hemoptysis is improving. Continue antibiotics Incentive spirometry Head of bed elevation Aspiration precautions Continue diuresis. Monitor renal function Monitor electrolytes - supplement as necessary. Labs and imaging reviewed. Rest of plan as noted below. Plan: Supplemental oxygen PRN Titrate to keep O2 sats above 92%. Continue antibiotics F/u cultures Incentive spirometry Oncology recs appreciated. Diurese w/ Lasix as tolerated Monitor renal function. Monitor electrolytes. Supplement as necessary. Monitor ins and outs. On anticoagulation w/ warfarin. Hemoptysis, likely capillary burst - improving. DVT prophylaxis. Prognosis: Poor given patient's multiple co-morbidities. Rest of plan per hospitalist and other consultants. Thank you Nelson Pelaez DNP, for allowing me to participate in this patient's care. Further recommendations will depend on the patient's clinical course. Please do not hesitate to contact me if you have any questions or concerns. This medical document was created using an electronic medical record system with [employer] dictation system. Although these documentations are being carefully reviewed, there may still be some phonetic and typographical changes. The errors are purely typographical, due to imperfection on the software program, and do not reflect any compromise in the patient's medical care. Dietary Evaluation Review Comments: encourage PO intakes, offer Ensure EnLive BID, consider liberized his diet to Regular, as his cholesterol and LDL are both at low levels Expected Outcomes/Goals: Maintain Boday weight. Improved strength. Plan discussed with: Patient, Other (DEBBIE Canela) SVETA BROOKS MD May 07, 2024 21:20
[2024-05-08] VITALS (7 sets, daily range): BP systolic 110–120; BP diastolic 63–77; PULSE 74–94; RESP 17–20; TEMP 97.9–98.9; O2SAT 94–97
[2024-05-08 01:27] LABS: COVID19 ANTIGEN SOFIA FIA NEGATIVE (NEGATIVE)
[2024-05-08 06:42] LABS: Calcium 8.8 mg/dL (8.7-10.4); Chloride 103 mmol/L (98-107); Sodium 139 mmol/L (136-145)
[2024-05-08 06:43] LABS: Anion Gap 9 (5-15); Carbon Dioxide 27 mmol/L (20-31)
[2024-05-08 06:48] LABS: BUN/Creatinine Ratio 29.4 (10.0-20.0); Blood Urea Nitrogen 20 mg/dL (9-23); Glucose 91 mg/dL (74-106)
[2024-05-08 06:55] LABS: Potassium 2.9 mmol/L (3.5-5.1)
--- NOTE | 2024-05-08 10:02 | DVHPN2 ---
Reviewed: Care Plan, H&P, Labs, Medications, Previous Orders, Radiology Changes from previous H/P or p: No Changes Eyes: No Pain, No Vision change, No Conjunctivae inflammation, No Eyelid inflammation, No Other, No Redness ENT: No Ear pain, No Ear discharge, No Nose pain, No Nose discharge, No Nose congestion, No Mouth pain, No Mouth swelling, No Throat pain, No Throat swelling, No Other Cardiovascular: Chest Pain; No Palpitations, No Orthopnea, No Paroxysmal Noc. Dyspnea, No Edema, No Lt Headedness, No Other Respiratory: No Cough, No Dry; Shortness of breath; No SOB with excertion, No Wheezing, No Hemoptysis, No Pleuritic Pain, No Sputum; Other (SOB at rest) Gastrointestinal: No Nausea, No Vomiting, No Abdominal Pain, No Diarrhea, No Constipation, No Melena, No Hematochezia, No Other Genitourinary: No Dysuria, No Frequency, No Incontinence, No Hematuria, No Retention, No Other Musculoskeletal: No other, No neck pain, No shoulder pain, No arm pain, No back pain, No hand pain, No leg pain, No foot pain Skin: No Rash, No Lesions, No Jaundice, No Bruising, No Other Objective Vitals Vital Signs Date Time Temp Pulse Resp B/P (MAP) Pulse Ox O2 Delivery O2 Flow Rate FiO2 05/08/24 08:46 97.9 94 20 113/77 (89) 97 97.9 05/07/24 19:40 Room Air* 0 21 Intake/Output Intake and Output 05/08/24 07:00 Intake Total 1500 ml Output Total 1500 ml Balance 0 ml Intake Oral 1200 ml IV Total 300 ml Output Urine Total 1500 ml # Bowel Movements 3 Medications Current Medications Medications Dose Ordered Sig/Goyo Route Start Time Stop Time Status Last Admin Dose Admin Carvedilol 3.125 mg Q12HR PO 05/03/24 10:00 05/08/24 08:23 3.125 MG Warfarin Sodium RX PROTOCOL PER PHARMACY PO 05/03/24 06:30 Sodium Chloride 10 ml Q8HR IV 05/03/24 14:00 05/08/24 06:00 10 ML Acetaminophen/ Hydrocodone Bitart 1 tab Q4HP PRN PO 05/03/24 06:30 05/08/24 08:21 1 TAB Ondansetron HCl 4 mg Q4HP PRN IV 05/03/24 06:30 Docusate Sodium 100 mg BIDPRN PRN PO 05/03/24 06:30 Acetaminophen 650 mg Q6HP PRN PO 05/03/24 06:30 Nitroglycerin 0.4 mg Q5MINP PRN SL 05/03/24 07:30 Morphine Sulfate 2 mg Q30M PRN IV 05/03/24 07:30 Hold Piperacillin Sod/ Tazobactam Sod 100 ml @ 25 mls/hr Q8H IV 05/05/24 09:00 05/08/24 08:20 25 MLS/HR Potassium Bicarbonate 50 meq DAILY PO 05/06/24 10:00 05/08/24 08:21 50 MEQ Laboratory Results Laboratory Tests 05/07/24 06:02 05/08/24 05:55 Chemistry Test 05/08/24 05:55 Calcium Level 8.8 mg/dL (8.7-10.4) Urinalysis Test 05/07/24 03:00 Urine Color Yellow (Yellow) Urine Clarity Clear (Clear) Urine pH 6.0 (5.0-9.0) Urine Specific [place] 1.018 (1.001-1.035) Urine Protein 2+ (Negative) H Urine Ketones Negative (Negative) Urine Blood 2+ /uL (Negative) H Urine Nitrite Negative (Negative) Urine Bilirubin Negative (Negative) Urine Urobilinogen Normal mg/dL (Negative) Urine Leukocyte Esterase Negative /uL (Negative) Urine RBC 83 /hpf (0 - 3) Urine WBC 4 /hpf (0 - 3) Urine Squamous Epithelial Cells Few /hpf (<5) Urine Bacteria None seen /hpf (None Seen) Urine Glucose Normal mg/dL (Normal) Microbiology Microbiology Date/Time Source Procedure Growth Status 05/04/24 13:59 Blood Blood Culture - Preliminary NO GROWTH AFTER 72 HOURS OF INCUBATION. Resulted Labs and/or images reviewed: Labs reviewed by me, Image(s) reviewed by me Assessment/Plan Assessment/Plan Acute generalized weakness Acute hypokalemia potassium 2.9: Replace potassium Acute kidney injury with BUN creatinine 46 and 2.107 Nephrology consult appreciated Hypertension History of kidney stones 1.7 cm right kidney stone: Consult for Urology , advised TURP Acute Bilateral lower lobe pneumonia: Zosyn History of prostatic cancer diagnosed Jul 2023 at [facility] with extensive Mets to the chest abdomen pelvis status post radiation therapy to the pelvic mets; oncology consult by Dr. Teran appreciated, per Dr. Hall he will follow up as an outpatient for his metastatic prostate cancer History of DVT bilateral lower extremities on Coumadin Ascending aortic aneurysm 4.4 cm Pulmonary hypertension Bilateral hydronephrosis secondary to obstructive uropathy: Consult for Dr. Irvin appreciated AFib on Coumadin Time spent 55 minutes Patient is full code MATHEW [phone] [employer] Advanced care planning time 20 minutes Patient's friend Minh [phone] at bedside Patient came from [facility] Examined today no new complaints and ready to go to penit[facility]iary facility Plan discussed with: Patient My Orders Orders - MARELY HANNA MD Procedure Category Date Status Time Insert Midline ORDERS 05/07/24 Transmitted 11:57 Discharge DISCHARGE 05/07/24 Transmitted 15:16 * [employer] CONS 05/07/24 Transmitted Consult Date of Service: May 08, 2024 Billing Provider: MARELY HANNA MD Common Visit Codes: [id number] INP/OBS CARE(HIGH) MARELY HANNA MD May 08, 2024 10:01
[2024-05-08 10:41] LABS: INR 2.92 (0.9-1.15); Partial Thromboplastin Time 34.9 SEC (24.5-34.5); Prothrombin Time 28.6 sec (9.3-11.8)
[2024-05-08] MEDS: POTASSIUM CHL 20 Meq TABLET PO ONE (12:54)
--- NOTE | 2024-05-08 13:31 | DVHPN2 ---
Progress Note - Dictate Date Seen: May 08, 2024 Has the PT tested + for MRSA If YES, has PT been informed?: Yes Medical Necessity Reason Pt with a Central, PICC or Fol: Yes The following are medically ne: Queen Catheter Reason for queen catheter: Strict I&O vital signs Vital Sign Date Time Temp Pulse Resp B/P (MAP) Pulse Ox O2 Delivery O2 Flow Rate FiO2 05/08/24 13:03 98.5 87 20 112/75 (87) 97 98.5 05/08/24 08:00 Room Air* 0 21 Total Intake and Output 05/07/24 05/07/24 05/08/24 15:00 23:00 07:00 Intake Total 100 ml 700 ml 700 ml Output Total 600 ml 900 ml Balance 100 ml 100 ml -200 ml medications Current Medications Medications Dose Ordered Sig/Goyo Route Start Time Stop Time Status Last Admin Dose Admin Carvedilol 3.125 mg Q12HR PO 05/03/24 10:00 05/08/24 08:23 3.125 MG Warfarin Sodium RX PROTOCOL PER PHARMACY PO 05/03/24 06:30 Sodium Chloride 10 ml Q8HR IV 05/03/24 14:00 05/08/24 12:55 10 ML Acetaminophen/ Hydrocodone Bitart 1 tab Q4HP PRN PO 05/03/24 06:30 05/08/24 12:55 1 TAB Ondansetron HCl 4 mg Q4HP PRN IV 05/03/24 06:30 Docusate Sodium 100 mg BIDPRN PRN PO 05/03/24 06:30 Acetaminophen 650 mg Q6HP PRN PO 05/03/24 06:30 Nitroglycerin 0.4 mg Q5MINP PRN SL 05/03/24 07:30 Morphine Sulfate 2 mg Q30M PRN IV 05/03/24 07:30 Hold Piperacillin Sod/ Tazobactam Sod 100 ml @ 25 mls/hr Q8H IV 05/05/24 09:00 05/08/24 08:20 25 MLS/HR Potassium Bicarbonate 50 meq DAILY PO 05/06/24 10:00 05/08/24 08:21 50 MEQ laboratory and microbiology Laboratory Tests 05/08/24 05:55 05/07/24 06:02 Test 05/08/24 05:55 Range/Units Serum Glucose 91 74-106 mg/dL Assessment/Plan Acute kidney injury---baseline creatinine 0.8---obstructive etiology +hypotension Hypokalemia sec to prostate cancer therapy Prostate cancer with bony metastasis Atrial fibrillation on warfarin Nephrolithiasis right Right hydronephrosis MARIA EUGENIA has resolved lasix hold today potassium replacement today, pending normalization of serum potassium rec urine urineK/cr ratio Urine electrolytes as ordered, Kidney ultrasound --noted kidney stone and moderate right hydronephrosis Urology evaluation //Queen catheter now planned for SNF Dietary Evaluation Review Comments: encourage PO intakes, offer Ensure EnLive BID, consider liberized his diet to Regular, as his cholesterol and LDL are both at low levels Expected Outcomes/Goals: Maintain Boday weight. Improved strength. Plan discussed with: Patient ALEISHA LUNA MD May 08, 2024 13:31
[2024-05-08] MEDS ORDERED: LOPERAMIDE HCL 2 MG CAP/TAB PO PRN (14:30)
[2024-05-08] MEDS: LOPERAMIDE HCL 2 MG CAP/TAB PO ONE (15:36)
--- NOTE | 2024-05-08 20:31 | DVHPN2 ---
Progress Note - Dictate Date Seen: May 08, 2024 Has the PT tested + for MRSA If YES, has PT been informed?: Yes Medical Necessity Reason Pt with a Central, PICC or Fol: Yes The following are medically ne: Queen Catheter Reason for queen catheter: Strict I&O Subjective Patient seen and examined at bedside. Breathing comfortably on room air. Overnight events reviewed. vital signs Vital Sign Date Time Temp Pulse Resp B/P (MAP) Pulse Ox O2 Delivery O2 Flow Rate FiO2 05/08/24 17:30 98.9 92 20 120/75 (90) 97 98.9 05/08/24 08:00 Room Air* 0 21 Total Intake and Output 05/07/24 05/07/24 05/08/24 15:00 23:00 07:00 Intake Total 100 ml 700 ml 700 ml Output Total 600 ml 900 ml Balance 100 ml 100 ml -200 ml objective Gen.: Patient lying in bed in no apparent distress. Breathing on room air. Head: Normocephalic, atraumatic. Eyes: EOMI/PERRLA. Ears: Normal hearing. Normal anatomy. Neck/trachea: Trachea midline, supple. Nose: Normal external anatomy. Mouth: Moist mucous membranes. Chest: Decreased air entry bilaterally. No wheezing or rhonchi. Cardiovascular: Positive S1, positive S2. Regular rate and rhythm. Abdomen: Positive bowel sounds in all 4 quadrants. Soft, non-tender, non- distended. : Deferred. Rectal: Deferred. Skin: Warm, dry. Intact. Extremities: 2+ radial pulses bilaterally. No lower extremity edema. Neuro: Awake, alert, oriented x3. No gross motor or sensory deficits. Cranial nerves II through XII intact. Gait not assessed. laboratory and microbiology Laboratory Tests 05/08/24 05:55 05/07/24 06:02 Test 05/08/24 05:55 Range/Units Serum Glucose 91 74-106 mg/dL Assessment/Plan Impression: Acute hypoxic respiratory failure Lung cancer with metastasis Acute kidney injury Generalized weakness. Hypokalemia Pleural effusion Atelectasis. Hemoptysis Events: Breathing on room air No respiratory distress. Hemoptysis is improving. Continue antibiotics Incentive spirometry Head of bed elevation Aspiration precautions Continue diuresis. Monitor renal function Monitor electrolytes - supplement as necessary. Labs and imaging reviewed. Rest of plan as noted below. Plan: Supplemental oxygen PRN Titrate to keep O2 sats above 92%. Continue antibiotics F/u cultures Incentive spirometry Oncology recs appreciated. Diurese w/ Lasix as tolerated Monitor renal function. Monitor electrolytes. Supplement as necessary. Monitor ins and outs. On anticoagulation w/ warfarin. Hemoptysis, likely capillary burst - improving. DVT prophylaxis. Prognosis: Poor given patient's multiple co-morbidities. Rest of plan per hospitalist and other consultants. Thank you Nelson Pelaez DNP, for allowing me to participate in this patient's care. Further recommendations will depend on the patient's clinical course. Please do not hesitate to contact me if you have any questions or concerns. This medical document was created using an electronic medical record system with [employer] dictation system. Although these documentations are being carefully reviewed, there may still be some phonetic and typographical changes. The errors are purely typographical, due to imperfection on the software program, and do not reflect any compromise in the patient's medical care. Dietary Evaluation Review Comments: encourage PO intakes, offer Ensure EnLive BID, consider liberized his diet to Regular, as his cholesterol and LDL are both at low levels Expected Outcomes/Goals: Maintain Boday weight. Improved strength. SVETA BROOKS MD May 08, 2024 20:31
== END 2024-05-08 17:05 | DRG 177 ==
LOC: EDBD 01:59 → ER 01:59 → TELE 07:20 → TELE-WESTW 09:48
PROVIDERS: ADMIT Nurse Practitioner Family; ATTEND Family Medicine
PROC: 05HB33Z Insertion of Infusion Device into Right Basilic Vein, Percutaneous Approach (ICD-10-PCS; principal; 2024-05-07)
PROC: B54MZZA Ultrasonography of Right Upper Extremity Veins, Guidance (ICD-10-PCS; 2024-05-07)
DX: J15.69 Pneumonia due to other Gram-negative bacteria (principal); J96.01 Acute respiratory failure with hypoxia; N17.9 Acute kidney failure, unspecified; C79.51 Secondary malignant neoplasm of bone; J81.1 Chronic pulmonary edema; J90 Pleural effusion, not elsewhere classified; I48.20 Chronic atrial fibrillation, unspecified; R04.2 Hemoptysis; I82.612 Acute embolism and thrombosis of superficial veins of left upper extremity; N13.2 Hydronephrosis with renal and ureteral calculous obstruction; J15.9 Unspecified bacterial pneumonia; E87.6 Hypokalemia; E66.9 Obesity, unspecified; G62.9 Polyneuropathy, unspecified; I27.20 Pulmonary hypertension, unspecified; I10 Essential (primary) hypertension; N40.1 Benign prostatic hyperplasia with lower urinary tract symptoms; R33.8 Other retention of urine; I11.0 Hypertensive heart disease with heart failure; I50.810 Right heart failure, unspecified; I71.21 Aneurysm of the ascending aorta, without rupture; Z79.01 Long term (current) use of anticoagulants; Z96.659 Presence of unspecified artificial knee joint; Z96.649 Presence of unspecified artificial hip joint; Z92.3 Personal history of irradiation; Z85.46 Personal history of malignant neoplasm of prostate; Z87.442 Personal history of urinary calculi; Z85.118 Personal history of other malignant neoplasm of bronchus and lung; Z68.29 Body mass index [BMI] 29.0-29.9, adult
CPT/HCPCS: 36415; 71045; 71250; 74176; 76775; 80048; 80053; 81001; 83735; 84100; 85025; 85610; 85730; 87040; 87086; 87426; 93306; 93971; 96365; 97163; G0378; J2543; J7060